=== PATIENT | female | born 1970 | race Caucasian/White ===

== ENCOUNTER 2016-10-02 01:16 | Inpatient (IN) | payer MEDICAID, MEDICARE ==
[~2016-10-02] VITALS: Ht 177.8 cm; Wt 106.9 kg
[2016-10-02] VITALS (18 sets, daily range): BP systolic 99–133; BP diastolic 58–96; PULSE 101–157; RESP 15–23; O2SAT 91–100
[~2016-10-02 01:16] MED LIST: ACYC400T2 PO; ALPR3TAB PO; CITA20TA PO; DULO20CA PO; PHEN37.53 PO; QUET400T PO; TIZA4TAB4 PO; TRAZ-118 PO
[2016-10-02] MEDS ORDERED: Ondansetron 2 mg/mL 2 mL Inj ONE (01:36)
--- NOTE | 2016-10-02 01:38 | ED.REPORT ---
HPI-Abd Pain F 40 and Over Date of Service Oct 02, 2016 ED Provider: Jostin Macias MD A 46 year old female with a history of RSD, anxiety, sciatica, hyperlipidemia, GERD, appendectomy, cholecystectomy and stomach ulcers at age 11, presents to the ED complaining of hematemesis. The pt began experiencing hematemesis two days ago and was seen in the [place] ED where she was treated and discharged. She vomited intermittently yesterday and is still vomiting persistently today. The pt is now experiencing abdominal pain, back pain, and melanotic diarrhea. The pt denies a history of liver disease or recent endoscopy, though she has been scoped in the past. Nursing Notes Stated Complaint: VOMITING BLOOD Chief Complaint: Female Abdominal Pain Nursing Notes Reviewed: Yes Allergies: Coded Allergies: codeine (Verified Adverse Reaction, Intermediate, NAUSEA, 10/02/16) Scheduled Alprazolam ER (Xanax XR) 3 Mg Tab.er.24h 3 MG PO DAILY Acyclovir (Acyclovir) 400 Mg Tablet 400 MG PO HS Citalopram Hydrobromide (Celexa) 20 Mg Tablet 20 MG PO DAILY Duloxetine (Cymbalta) 20 Mg Capsule 60 MG PO HS Phentermine (Phentermine) 37.5 Mg Tablet 37.5 MG PO MORNING Quetiapine Fumarate (Seroquel) 400 Mg Tablet 400 MG PO HS Tizanidine (Tizanidine) 4 Mg Tablet 4 MG PO 0000 Trazodone (Trazodone) 100 Mg Tablet 200 MG PO HS General Time Seen by MD: 01:37 Chief Complaint Other (Hematemesis) Hx Obtained From: Patient Arrived By: Walk-in Sudden in Onset?: No Symptom Duration: Since onset Recent Healthcare: Recent doctor visit Similar Sx Previous: Yes Past Medical History Past Medical History Anxiety Chronic Back Pain Sciatica Chronic Shoulder pain Hyperlipidemia GERD Depresion h/o RSD upper limb Stomach ulcers at age 11 Chronic benzodiazepine use Chronic opioids Past Surgical History Right rotator cuff surgery x3 Breast augmentation Reports: Appendectomy, Cholecystectomy Reports: Tubal ligation Family History The patients father had coronary artery disease Smoking History Former Smoker Social History Alcohol Use: "Social" Drug Use: Denies drug use (other than chronic prescribed meds) Other Social History: Local resident Occupation , Ambulatory Status Independent Review of Systems Respiratory: Denies: Non-productive cough, Shortness of breath Cardiovascular: Denies: Chest pain GI: Reports: Abdominal pain, Diarrhea, Hematemesis, Hematochezia, Nausea, Vomiting Musculoskeletal: Reports: Back pain, Denies: Neck pain Complete sys rev & neg: except as marked. Skin: Denies Rash Physical Exam Vital Signs Vital Signs (First) Date Time Temp Pulse Resp B/P Pulse Ox O2 Delivery O2 Flow Rate FiO2 10/02/16 01:23 157 20 133/96 100 Room Air 10/02/16 03:15 37.1 3 Initial VS: Reviewed General/Constitutional: Awake, Alert diaphoretic actively vomiting bloody material unconstrained diarrhea, grossly melanotic Respiratory / Chest: Atraumatic, Breath sounds NL, Breath sounds = bilat, No respiratory distress Cardiovascular: Heart rate NL, Regular rhythm, Heart sounds NL Abdomen: Atraumatic, Soft diffuse abdominal tenderness Back: Atraumatic, Full range of motion Head / Eyes: Atraumatic, Normocephalic, PERRL, EOMI ENT: Atraumatic, Airway patent, Mucous membranes moist Skin: Atraumatic, Color NL, No rash, Warm, Dry Neurologic: Oriented X3, Speech NL, No motor deficits, No sensory deficits Neck: Atraumatic, Supple, Full range of motion Upper Extremity / MS: Atraumatic, Full range of motion Lower Extremity / Pelvis / MS: Atraumatic, Full range of motion Psychiatric: Affect NL, Mood NL Interpretation & Diagnostics Lab Results Interpretation Result Diagram: 10/02/16 0328 10/02/16 0143 Test 10/02/16 01:43 10/02/16 03:28 Neutrophils (%) (Auto) 83.3% (40-74) Lymphocytes (%) (Auto) 12.6% (14-46) Monocytes (%) (Auto) 3.6% (4-12) Eosinophils (%) (Auto) 0.2% (0-5) Basophils (%) (Auto) 0.1% (0-3) Hold Purple Top Tube Received (Received) Prothrombin Time 10.7sec (8.1-12.5) Prothromb Time International Ratio 1.00ratio Hold Blue Top Tube Received (Received) Sodium Level 141mEq/L (134-144) Potassium Level 3.8mEq/L (3.5-5.2) Chloride Level 100mEq/L (97-108) Carbon Dioxide Level 17mmol/L (18-29) Blood Urea Nitrogen 32mg/dL (6-24) Creatinine 1.14mg/dL (0.57-1.00) Estimat Glomerular Filtration Rate 74mL/min (>59) Glucose Level 264mg/dL (60-99) Calcium Level 9.3mg/dL (8.5-10.1) Magnesium Level 1.3mg/dL (1.6-2.6) Total Bilirubin 0.6mg/dL (0.0-1.2) Aspartate Amino Transf (AST/SGOT) 13U/L (0-50) Alanine Aminotransferase (ALT/SGPT) 12U/L (0-32) Alkaline Phosphatase 60U/L (25-150) Total Protein 7.0g/dL (6.4-8.4) Albumin 4.3g/dL (3.4-5.0) Hold Red Top Tube Received (Received) Hold [place] Top Tube Received (Received) Hold Kat Top Tube Received (Received) White Blood Count 14.7th/mm3 (3.8-10.1) Red Blood Count 3.68mil/mm3 (3.90-5.20) Hemoglobin 11.1g/dL (12.0-15.6) Hematocrit 32.6% (35.0-46.0) Mean Corpuscular Volume 88.6fL (81-100) Mean Corpuscular Hemoglobin 30.2pg (27.0-35.0) Mean Corpuscular Hemoglobin Concent 34.0% (32.0-37.0) Red Cell Distribution Width 13.0% (12.3-15.4) Platelet Count 181bil/L (150-400) ECG Interpretation ECG Interpretation: sinus tachycardia with a rate of 133 nonspecific STT wave changes Time: 02:52 Interpreted by: ED physician X-Ray Chest Interpretation Chest Xray Interpretation: no acute findings Interpretation / Wet Read by: Wet read ED physician Re-Eval/Medical Decision Med Decision/Clinical Course 46-year-old presents with hematemesis, gross melena, and tachycardia. She has not responded much to IV saline, and is now on her third liter with no real diminution of her pulse rate. Hemoglobin is adequate and dropped slightly over the course of her stay in the emergency department from 11.8-11.1. Vomiting is been difficult to control, but has responded finally to ondansetron plus Haldol plus Ativan. Protonix drip and bolus given. Single-dose octreotide without drip given. Nothing by mouth status and anticipate endoscopy during the hospitalization. Source of Hx: Old records Re-Evaluation/Progress : Time of Eval: 01:37 Patient Status: Condition improved Re-Evaluation/Progress Note: Pt informed of the need for admission during the initial interview. The pt understands and agrees with the plan. All questions are addressed at this time. Consultation #1: Referral / Consult Name: Yunior Beebe MD Consulted With: Hospitalist Call Returned at: 03:30 Construction Scheduler: Agrees with eval, Agrees with plan, Accepts admit Note: Spoke with Dr. Beebe, hospitalist, regarding pt's case. Dr. Beebe agrees with the evaluation and agrees to admit the pt. Consultation #2: Referral / Consult Name: Flex Barton MD Call Returned at: 05:34 Construction Scheduler: Agrees with eval, Agrees with plan Note: Consulted with Dr. Barton, GI, regarding pt's case. Dr. Barton agrees with the evaluation and plan for admission. He agrees to consult and see the pt. Counseled Regarding: Diagnosis, Lab results, Need for admission Discharge & Departure Primary Impression: Upper GI bleed Disposition: ADMITTED TO HOSPITAL Discharge Condition All VS Reviewed: Yes Condition: Stable Referrals: Da Rojas DO (PCP) Crit Care Except Billable Proc Time Spent: 30-74 minutes (thirty minutes) Services Performed: Patient management by me, Time spent at bedside, Reviewing test results, Reviewing imaging, Discussing patient care, Documentation in record, Time with fam/surrogate Scribe Attestation Portions of this note were transcribed by Alex Walden. I, Dr. Macias personally performed the history, physical exam and medical decision-making; I reviewed and confirmed the accuracy of the information in the transcribed note. copies to: Da Rojas Christopher W MD Oct 02, 2016 01:37 ALEX WALDEN Oct 02, 2016 01:56
[2016-10-02] MEDS ORDERED: Haloperidol 5 mg/mL Inj ONE (01:49)
[2016-10-02] MEDS ORDERED: 0.9% Sodium Chloride 1,000 ML IV ONE (02:08)
[2016-10-02] MEDS ORDERED: Pantoprazole 4 mg/mL 10 mL Inj IVPUSH ONE (02:10)
[2016-10-02] MEDS ORDERED: Haloperidol 5 mg/mL Inj IVPUSH ONE ×2 (02:10→02:25)
[2016-10-02] MEDS ORDERED: Pantoprazole Inj 80 MG, Pharmacy To Mix 1 EA in 0.9% Sodium Chloride 80 ML IV ONE ×2 (02:10)
[2016-10-02 02:20] LABS: BASOPHILS % (AUTO) 0.1 % (0-3)
[2016-10-02 02:22] LABS: EOSINOPHILS % (AUTO) 0.2 % (0-5); MONOCYTES % (AUTO) 3.6 % (4-12); Mean Corpuscular Hemoglobin 30.3 pg (27.0-35.0); Mean Corpuscular Volume 86.4 fL (81-100); NEUTROPHILS % (AUTO) 83.3 % (40-74); Platelet Count 371 bil/L (150-400)
[2016-10-02] MEDS ORDERED: 0.9% Sodium Chloride 50 ML ONE (02:26)
[2016-10-02 02:31] LABS: Magnesium 1.3 mg/dL (1.6-2.6)
[2016-10-02 03:34] LABS: Mean Corpuscular Hemoglobin 30.2 pg (27.0-35.0); Mean Corpuscular Volume 88.6 fL (81-100)
[2016-10-02] MEDS ORDERED: Alum-Mag Hydrox-Simeth 30 mL Suspension PO PRN (03:40)
[2016-10-02] MEDS ORDERED: Polyethylene Glycol (PEG) 17 Gm Powder PO PRN (03:40)
[2016-10-02] MEDS ORDERED: Senna-Docusate 8.6-50 mg Tablet PO PRN (03:40)
[2016-10-02] MEDS: 0.9% Sodium Chloride 1,000 ML IV SCH (04:09)
[2016-10-02] MEDS: Pantoprazole Inj 80 MG in 0.9% Sodium Chloride-Pha MIX 80 ML IV SCH ×2 (05:25→15:25)
[2016-10-02] MEDS ORDERED: Pantoprazole Inj 80 MG in 0.9% Sodium Chloride 100 ML IV ONE (05:25)
[2016-10-02] MEDS ORDERED: Albuterol 2.5 mg/3 mL Inhalation Solution NEB PRN (07:00)
--- NOTE | 2016-10-02 07:24 | PCM.HPMED ---
Subjective Date of Service Oct 02, 2016 Primary Provider: Admitting Physician: Yunior Beebe MD Primary Care Physician: aD Rojas DO Attending Physician: Yunior Beebe MD Admit Status: From the Emergency Department Chief Complaint: Vomiting blood History of Present Illness: Cynthia Flores is a 46 year old lady with a history of asthma, GERD, HTN , HLD, chronic pain and a complex psychiatric history including a mood disorder , depression, anxiety and PTSD with psychiatric hospitalizations for suicidal ideations as well as benzodiazepine/muscle relaxant abuse who presented to the ED with complaint of vomiting blood for the past 2 days. History obtained from patient and via chart review. She states that her symptoms started two days ago and increasingly worsened until she started vomiting blood. Associated symptoms include fever, chills, malaise, melanotic diarrhea. She was reportedly evaluated in the ED at [facility] at the onset and sent home. She reports a history of reflux and chronic back pain with sciatica for which she recently had been taking meloxicam. However, she states that she stopped taking this about one week ago. She does not remember if she has ever had an endoscopy but a study on 05/30/11 significant for mild chronic gastritis, small hiatal hernia and negative for Christine's esophagus as well as H. pylori. She states that she rarely drinks caffeine, denies alcohol use and states that the only change in her diet recently is that she has not been eating. Prior abdominal surgeries include an appendectomy, cholecystectomy and tubal ligation. In the ED she was afebrile, normotensive and tachycardic with heart into the 150s. Labs significant for anemia with H/H 11.9/33.6, mild leukoctyosis with WBC of 17.5 and elevated BUN/Creatinine (32/1.14). ECG sinus tachycardia with a rate of [address] wave changes; chest Xray was unremarkable. She was given 2L of normal saline, ocreteotide, IV pushes of haldol, lorazepam, as well as zofran and started on a protonix drip. Review of Systems: A comprehensive review of systems was conducted with the patient and found to be negative except as above in the History of Present Illness. Allergies Coded Allergies: codeine (Verified Adverse Reaction, Intermediate, NAUSEA, 10/02/16) Home Medications Alprazolam ER 3 MG PO DAILY Acyclovir 400 MG PO HS Citalopram Hydrobromide 20 MG PO DAILY Duloxetine 60 MG PO HS Phentermine 37.5 MG PO MORNING Quetiapine Fumarate 400 MG PO HS Tizanidine 4 MG PO Trazodone 200 MG PO HS PMH GERD Hypertension Hyperlipidemia Obesity Depression/PTSD Mood disorder, unspecified Chronic Shoulder pain Psychiatric hospitalizations for mood disorder Benzodiazepine/muscle relaxant abuse Complex regional pain syndrome right upper extremity Chronic pain with right sided sciatica Mixed urinary incontinence Chronic headaches Suicidal ideation Surgical History Right rotator cuff surgery x3 Breast augmentation Appendectomy Cholecystectomy Tubal ligation Family History Father- CAD with prior [place] and cardiomyopathy. Mother- Breast cancer and diabetes Paternal grandmother with breast cancer Social History Hx Alcohol Use: No Hx Substance Use: Yes (MJ occasionally) Hx Tobacco Use: Yes (MEDICAL MARIJUANA AND OCC CIGARETTES) Smoking Status: Former Smoker Living Arrangement: with Family Exam Vital Signs Vital Sign - Last Date Time Temp Pulse Resp B/P Pulse Ox O2 Delivery O2 Flow Rate FiO2 10/02/16 03:15 37.1 122 18 99 Nasal Cannula 3 10/02/16 03:13 109/74 Intake and Output 10/01/16 10/01/16 10/02/16 Cumulative From/Thru 15:00 23:00 07:00 10/02/16 01:23 - 10/02/16 02:45 Intake Total 2050 ml 2050 ml Balance 2050 ml 2050 ml Intake IV Total 2050 ml 2050 ml Exam General: Obese female, appears anxious and in mild distress due to abdominal pain. HEENT: Normocephalic, atraumatic. External ears without defect. Pupils equal, round, and reactive to light and accommodation. Anicteric sclerae. Mucosa dry. Neck: Supple with full range of motion. No jugular venous distension, bruits or thyromegaly. Cardiovascular: Regular rhythm, tachycardic rate. No murmurs or rubs appreciated. Pulmonary: Clear to auscultation bilaterally with no crackles, wheezes, or rhonchi. Abdomen: Soft, obese, nondistended, diffusely tender to palpation matilde mid epigastric area. No rebound or guarding. Bowel tones present. Extremities: No clubbing, cyanosis, or edema. Skin: Normal temperature, turgor, and texture; no rash or ulcerations. Neurological: Cranial nerves grossly intact. Normal muscle strength, tone, and bulk. Psychiatric: Anxious mood, somewhat flat affect. Alert and oriented to person, place, and time. Lab and Diagnostics Labs Laboratory Tests Test 10/02/16 01:43 10/02/16 03:28 White Blood Count 17.5th/mm3 (3.8-10.1) 14.7th/mm3 (3.8-10.1) Red Blood Count 3.89mil/mm3 (3.90-5.20) 3.68mil/mm3 (3.90-5.20) Hemoglobin 11.8g/dL (12.0-15.6) 11.1g/dL (12.0-15.6) Hematocrit 33.6% (35.0-46.0) 32.6% (35.0-46.0) Mean Corpuscular Volume 86.4fL (81-100) 88.6fL (81-100) Mean Corpuscular Hemoglobin 30.3pg (27.0-35.0) 30.2pg (27.0-35.0) Mean Corpuscular Hemoglobin Concent 35.1% (32.0-37.0) 34.0% (32.0-37.0) Red Cell Distribution Width 12.9% (12.3-15.4) 13.0% (12.3-15.4) Platelet Count 371bil/L (150-400) 181bil/L (150-400) Neutrophils (%) (Auto) 83.3% (40-74) Lymphocytes (%) (Auto) 12.6% (14-46) Monocytes (%) (Auto) 3.6% (4-12) Eosinophils (%) (Auto) 0.2% (0-5) Basophils (%) (Auto) 0.1% (0-3) Hold Purple Top Tube Received (Received) Prothrombin Time 10.7sec (8.1-12.5) Prothromb Time International Ratio 1.00ratio Hold Blue Top Tube Received (Received) Sodium Level 141mEq/L (134-144) Potassium Level 3.8mEq/L (3.5-5.2) Chloride Level 100mEq/L (97-108) Carbon Dioxide Level 17mmol/L (18-29) Blood Urea Nitrogen 32mg/dL (6-24) Creatinine 1.14mg/dL (0.57-1.00) Estimat Glomerular Filtration Rate 74mL/min (>59) Glucose Level 264mg/dL (60-99) Calcium Level 9.3mg/dL (8.5-10.1) Magnesium Level 1.3mg/dL (1.6-2.6) Total Bilirubin 0.6mg/dL (0.0-1.2) Aspartate Amino Transf (AST/SGOT) 13U/L (0-50) Alanine Aminotransferase (ALT/SGPT) 12U/L (0-32) Alkaline Phosphatase 60U/L (25-150) Total Protein 7.0g/dL (6.4-8.4) Albumin 4.3g/dL (3.4-5.0) Hold Red Top Tube Received (Received) Hold [place] Top Tube Received (Received) Hold Kat Top Tube Received (Received) Result Diagram: 10/02/16 0328 10/02/16 0143 Assessment & Plan 46 year old lady with a history of GERD, HTN, chronic pain and a complex psychiatric history including a persistent mood disorder, depression, anxiety and prior psychiatric hospitalizations for suicidal ideations who presented to the ED with a two day history of hematemesis. Admitted for further evaluation and management of acute upper GI bleed. Acute upper GI bleed, present on admission. Active -Likely secondary to gastric ulcer. Pt with remote hx of gastritis (EGD in 2011 negative for Christine's and H. pylori) and recently discontinued meloxicam. Pt presented with hematemesis and melanotic diarrhea. -Afebrile, normotensive but persistently tachycardic despite IV fluids. -H/H trending down 11.6 on admission. Now 9.1 -PT/INR 10.7/1.0 -Stool guaiac pending -NPO -IV fluids at 100 mL per hour -GI consult in the morning -Protonix drip Anemia secondary to acute blood loss. Present on admission. Active. -H/H trending down 11.6 on admission. Now 9.1 -Treat underlying cause as above -Monitor H/H -Transfusion threshold Hb < 7.0 Acute kidney injury. Present on admission. Active. -Likely prerenal due to hypovolemia secondary to acute GI bleed. -Creatinine on 06/18/15 was 0.75 now 1.14. BUN on 06/18/15 was 9 now 32. -Continue IVFs Acute Dehydration. Present on admission. Active. - secondary to volume depletion from diarrhea/lack of PO intake - Received 2L of NS in ED. - Continue Volume Repletion with NS IV 125ml/hr - Monitor electrolytes Leukocytosis, acute. Present on admission. Active. -Likely stress reaction. -No obvious signs of infection -Monitor CBC Hyperglycemia, likely acute. Present on admission. Active. -Pt without diagnosis of diabetes and serum glucose within normal limits in May of 2015. -Serum glucose 264 on admission. -Repeat CMP Asthma, chronic. Present on admission. Active. -Continue home inhalers. CODE STATUS: FULL CODE FEN: NPO IVF: GI Prophylaxis: Protonix gtt. DVT Prophylaxis: Held in setting of GI bleed. PRN: Acetaminophen-fever/headache/mild/moderate pain Antiemetics, as needed Bowel regimen, as needed. Disposition: Patient admitted under inpatient status with expected length of stay > 2 midnights for severity of present symptoms, complexities of treatment plan and risk for adverse event. Pain Evaluation: Adequate Pain Control VTE Mechanical Devices: Intermittant Pneumatic CD Resuscitation Status: CPR: Attempt Resuscitation Time spent 45 minutes critical care time spend. Patient was admitted to the ICU due to concern about volume loss with tachycardia and clinical decline when in the Emergency department Attending Statement The patient was seen and examined together with Dr. Iglesias on 10/02 and I agree with the history, exam and plan as outlined in the note above. Shea Iglesias DO Oct 02, 2016 03:57 Yunior Beebe MD Oct 02, 2016 19:49
--- NOTE | 2016-10-02 07:30 | NUR ---
CCU Admit Pt arrived from [facility] to CCU # 2020 approx at 2114. Pt A&O x3. Dopamine was infusing at 4 mcg. VSS. Dopamine off since 2300. No bradycardia or pauses noted. Admission assessment and screening completed. [facility] updated. Spouse at the bedside throughout the NOC providing support and comfort. No overt complications noted. Addendum: 10/02/16 at 0731 by CATHERINE GODDARD RN Discard above note. Wrong pt
--- NOTE | 2016-10-02 07:31 | NUR ---
Admit Pt arrived from ER to CCU # 2018 approx at 0455. Pt appears anxious. She admits to chronic anxiety issues. VSS. HR tachycardic more so when she is anxious. Admission assessment and screening completed. at the bedside assessing pt. Pt status changed to PCC/Tele. Pt moved to room 2001. Pt medicated for pain and anxiety. No overt complications noted.
[2016-10-02] MEDS ORDERED: Pantoprazole 4 mg/mL 10 mL Inj IVPUSH SCH (08:30)
--- NOTE | 2016-10-02 08:37 | CONS ---
[address] [address] CONSULTATION REPORT PATIENT: GIFTY FIGUEROA : 1970 MR#: [id number] ADMIT: 10/02/2016 JOB ID: [id number] DATE OF SERVICE: 10/02/2016 GASTROENTEROLOGY CONSULTATION: REASON FOR CONSULTATION: Hematemesis. HISTORY OF PRESENT ILLNESS: A 46-year-old female, history of asthma, GERD, hypertension, hyperlipidemia, chronic pain, history of psychiatric disorders, PTSD, anxiety, mood disorder, depression presents for a consultation for hematemesis x2 days. The patient states she was vomiting blood during this point in time. The patient states that she had an upper endoscopy that was performed on May 30, 2011, which showed gastritis, small hiatal hernia. Negative for Christine esophagus. The patient denies NSAID use or alcohol during this time. The patient never had a colonoscopy and family history is negative for colon cancer, inflammatory bowel disease or celiac disease. The patient was admitted with a hemoglobin of 11.8, hematocrit 33 with a BUN of 32 and a creatinine of 1.1. PT 10.7, INR 1.0. The patient states that she denies rectal bleeding, change in bowel habits or unintentional weight loss. PAST MEDICAL HISTORY: As stated above, which also includes: 1. Chronic shoulder pain. 2. Benzodiazepine muscle relaxant abuse. 3. Chronic migraine. 4. Suicide ideation. PAST SURGERIES: 1. Right rotator cuff surgery x3. 2. Breasts augmentation. 3. Appendectomy. 4. Cholecystectomy. 5. Tubal ligation. ALLERGIES: CODEINE. HOME MEDICATIONS: 1. Alprazolam. 2. Acyclovir. 3. Citalopram. 4. Fluoxetine. 5. Quetiapine. 6. Tizanidine. 7. Trazodone. SOCIAL HISTORY: She does marijuana occasionally. No IV drug use. No smoking. No alcohol. FAMILY HISTORY: Negative for colon cancer, IBD or celiac disease. REVIEW OF SYSTEMS: The patient denies headache, blurred vision. Positive for nausea and vomiting. No chest pain, shortness of breath. Positive for abdominal pain. No skin rash or joint pain. PHYSICAL EXAMINATION: Vital signs upon presentation: Her temperature is 37.1, pulse 115, blood pressure 108/68, respiratory rate 20, satting 95% room air. General: She has had no scars. Eyes: Anicteric. Throat: Supple. Lungs: Clear to auscultation bilaterally. Cardiovascular: Regular rate and rhythm. Abdomen: Soft, nondistended. Positive epigastric pain upon palpation. Normoactive bowel sounds. Extremities: No cyanosis, clubbing or edema. LABORATORIES: Labs show a PT 10.7, INR 1.0. White blood cell count 14.7, hemoglobin 9.1, hematocrit 26, platelet count of 181. Sodium 141, potassium 3.8, chloride 100, bicarbonate 17, BUN 32, creatinine 1.1, glucose 262. Calcium 9.3, magnesium 1.3. Total bilirubin 0.6, AST 13, ALT 12, alk phos 60. ASSESSMENT AND PLAN: This is a 46-year-old female, history of GERD, hypertension, hyperlipidemia, chronic pain, PTSD, anxiety, depression, mood disorder on benzodiazepines and muscle relaxants who presents here for hematemesis x2 days. Differential diagnosis includes esophagitis, gastritis, Suyapa-Good tear, peptic ulcer disease, AVM. RECOMMENDATIONS: 1. Continue Protonix drip. 2. N.p.o. except for medications. 3. EGD with anesthesia scheduled for today around noon. 4. Please order abdominal ultrasound along with checking an amylase and lipase for pancreatitis due to epigastric pain. Will continue to follow. [facility]
[2016-10-02] MEDS ORDERED: fentaNYL-PF 50 mCg/mL 2 mL Inj ONE (09:47)
[2016-10-02] MEDS ORDERED: Propofol 10,000 mCg/mL 20 mL Inj ONE (09:47)
[2016-10-02] MEDS ORDERED: Ketamine 10 mg/mL 20 mL Inj ONE (09:47)
--- NOTE | 2016-10-02 09:54 | NUR ---
Social Work: Initial Assessment Data: Pt is a 46 y/o female admitted for upper GI bleed. Pt's PCP is Dr Rojas, pt's insurance is Medicare with [facility] supp. EMR reviewed. Readmit score not listed. Pt has a hx of suicidal ideation, QA TEST LEAD will follow up regarding this pending MD order if this is a current issue. QA TEST LEAD met with pt at bedside, role explained. Pt states she lives in [place] with her s/o and 2 sons in a single story home where she uses no DME. Pt drives, has no hx of HH or SNF, no LTC or VA benefits, has no LTC or VA benefits, and is not a caregiver. No d/c planning needs identified at this time. QA TEST LEAD will continue to follow if needs arise. Assessment: Pt who is independent at baseline, currently capable of self care. Hx of suicidal ideation, QA TEST LEAD will follow pending MD order if this is a current issue. Plan: Pt will d/c home via POV when medically stable. QA TEST LEAD will continue to follow if needs arise. WILBERT Rebolledo Addendum: 10/02/16 at 0958 by TANA SEVILLA Amended: Links added.
[2016-10-02] MEDS ORDERED: QUET200T58 PO (10:57)
[2016-10-02] MEDS ORDERED: OXYC-465 PO (10:57)
[2016-10-02] MEDS ORDERED: ALBU8.5H2 INH (10:57)
[2016-10-02] MEDS ORDERED: DULO30CA50 PO (10:57)
--- NOTE | 2016-10-02 11:20 | NUR ---
pt for endoscopy pt left for upper endoscopy via stretcher.
[2016-10-02] MEDS ORDERED: Lactated Ringer's 1,000 ML IV ONE ×2 (12:07)
--- NOTE | 2016-10-02 12:56 | ENDO ---
[address] [address] ENDOSCOPY PROCEDURE PATIENT: GIFTY FIGUEROA : 1970 MR#: [id number] ADMIT: 10/02/2016 JOB ID: [id number] DATE OF SERVICE: 10/02/2016 PROCEDURE: Esophagogastroduodenoscopy. PREOPERATIVE DIAGNOSIS(ES): Gastrointestinal bleed. POSTOPERATIVE DIAGNOSIS: Completely normal upper endoscopy without overt signs of gastrointestinal bleeding. ANESTHESIA: Monitored anesthesia care. COMPLICATIONS: None. BLOOD LOSS: Minimal. DESCRIPTION OF PROCEDURE: After risks and benefits explained to the patient, informed consent was obtained. After anesthesia administered, upper endoscope was inserted into the mouth, intubated into the esophagus, stomach, second portion of duodenum. Mucosa carefully examined. After procedure was done, the scope was withdrawn and the procedure terminated. FINDINGS: Upon inspection of esophagus, the esophagus was normal without masses, ulcers, lesions. Z-line located 40 cm from incisors. Upon entry into the stomach, the stomach was also normal without masses, ulcers, or lesions. Retroflexion was normal. No evidence of Suyapa-Good tear or evidence that even gastritis was even seen. No overt signs of bleeding was seen. Duodenal bulb, first and second portion normal. IMPRESSION: Completing normal upper endoscopy. RECOMMENDATIONS: 1. Discontinue Protonix drip. 2. Recommendations per the patient's GI consultation team. 3. Okay to start clear liquid diet, advance as tolerated. MTDD
--- NOTE | 2016-10-02 15:02 | DRSVH ---
PROCEDURE: X-RAY CHEST ONE VIEW, PORTABLE ([id number]) INDICATIONS: ugi bleed TECHNIQUE: One view of the chest was acquired. COMPARISON: [facility], CR, XR CHEST 2VW, 09/10/2015, 16:06. [facility], CR , XR CHEST 1VW (PORTABLE), 01/04/2015, 12:18. FINDINGS: Surgical changes and devices: Surgical anchors involving the right humeral head. Lungs and pleura: No pleural effusions or pneumothorax. Lungs are clear. Mediastinum: Mediastinal contours appear normal. Heart size is normal. Bones and chest wall: No suspicious bony lesions. Overlying soft tissues appear unremarkable. IMPRESSION: No acute cardiopulmonary disease. Dictated by: Martinez TREVINO Interpreted: Farzana Dutta MD on 10/02/2016 at 8:39 Approved by: Farzana Dutta M.D. on 10/02/2016 at 15:00
[2016-10-02] MEDS ORDERED: Magnesium Sulf 2 Gm/50mL Water 2 GM in IV Premix 1 EACH IV ONE (15:05)
--- NOTE | 2016-10-02 16:23 | PCM.HPANE ---
Patient Data Date of Service: Oct 02, 2016 Surgeon Admitting Provider:Yunior Beebe MD Attending Provider:Jyoti Zheng DO Primary Care Physician:Da Rojas DO Other Provider: Reason for Visit Upper Gi Bleed Ht/WT & BMI Height (Feet): 5 Height (Inches): 10.00 Weight (Kilograms): 103.700 Body Mass Index 32.00 Allergies Coded Allergies: codeine (Verified Adverse Reaction, Intermediate, NAUSEA, 10/02/16) Past Anesthesia History Anesthesia History: Positive for:: Difficult Intubation, Denies:: Abnormal Airway, Anesthesia Reactions, Fam Anesthesia Reaction, Fam Malignant Hypertherm, Malignant Hyperthermia Diabetes History Hx Diabetes?: No MRSA MRSA: No Medications Reported Medications Duloxetine 30 Mg Capsule.dr30 Mg PO DAILY #60 10/02/16 oxyCODONE-Acetaminophen 7.5-325 mg 1 Each Tablet1 Tab PO Q3-4Hrs PRN For Pain # 28 10/02/16 Quetiapine Fumarate 200 Mg [id number] Mg PO HS #30 10/02/16 Albuterol HFA (Proair HFA)8.5 Gm Hfa.aer.ad2 Puffs INH Q4-6H PRN For Shortness of Breath #26 10/02/16 Alprazolam ER (Xanax XR)3 Mg Tab.er.24h3 Mg PO DAILY For Anxiety Ref 0 01/04/15 Trazodone 100 Mg Iwvwxs678 Mg PO HS #30 TABLET Ref 0 07/26/14 Acyclovir 400 Mg Cmplkn891 Mg PO HS 30 Days Ref 0 07/03/14 Quetiapine Fumarate (Seroquel)400 Mg Vrvtgr795 Mg PO HS #30 TABLET Ref 0 01/31/14 Discontinued Reported Medications Phentermine 37.5 Mg Fbnxwg05.5 Mg PO MORNING 06/18/15 Tizanidine 4 Mg Tablet4 Mg PO 0000 06/18/15 Duloxetine (Cymbalta)20 Mg Glibbrb10 Mg PO HS Ref 0 01/04/15 Citalopram Hydrobromide (Celexa)20 Mg Lydorc37 Mg PO DAILY 30 Days Ref 0 01/31/14 History History of ENT Problems?: No HEENT History: Positive for:: Difficult Intubation Denies:: Abnormal Airway Hearing Problem Denture Type: Full- Upper Teeth Condition: Missing Teeth Hx of Heart Problems?: No Cardiovascular History: Denies:: Cardiac Surgery Chest Pain Congestive Heart Failure Edema Heart Murmur Hypertension Irregular Heartbeat Pacemaker Thrombophlebitis Hx of Respiratory Problem?: Yes Respiratory History: Positive for:: Asthma Cough Denies:: Tuberculosis Hx Neurologic Problems?: Yes Neurological History: Positive for:: Dizziness Headaches Denies:: Alzheimer's Disease CVA Dementia Parkinson's Disease Seizures Hx of GI Problems?: No Hx of Problems?: No Female Hx: Denies:: Currently Endometriosis Pelvic Inflammatory Problems with Breasts? Hx Musculoskeletal Problems?: No Musculoskeletal History: Denies:: Joint Replacement Musculoskeletal Trauma Hx of Psycho/Social Problems?: Yes Psycho Social History: Positive for:: Anxiety Hx Depression Suicide Attempt (took pills) Denies:: Bipolar Disorder Hx Surgeries?: Yes (gwen pimentel) Hx Any Other Health Problems?: Yes Other History: Positive for:: Hospitalization History Blood Transfusions: Positive for:: Accept Blood Products? Denies:: Blood Transfusions Hx Diabetes: No Hx Alcohol Use: NoHx Substance Use: Yes (MJ occasionally) Smoking Status: Former Smoker Have You Smoked inLast 12 mo: Yes (minimal amount) Stop/Bang Treated for Sleep Apnea?: No Do You Have a CPAP Machine?: No S-Snoring: Do You Snore Loudly: No T-Tired: feel tired, fatigued: No O-Obsered: Observed not breath: No P-Blood Pressure: treated: No B- Body Mass Index > 35 kg/m2: No A- Age over 50: No N- Neck Large Circumference: No G- Gender Male: No FRIDA Total Score: 0 FRIDA Risk Assessment: Low Risk, <3 Yes Risk Assessment Category Category 1A: Patient has history of documented sleep apnea, and HAS NOT received any narcotic, sedative or anesthesia administration during this stay. Category 1B: Patient has history of documented sleep apnea, and HAS received any narcotic , sedative or anesthesia administration during this stay Category 2: Patient has SUSPECTED Obstructive Sleep Apnea, and HAS received any narcotic , sedative or anesthesia administration during this stay. Category 3: Patient has SUSPECTED Obstructive Sleep Apnea and HAS NOT received narcotic, sedative or anesthesia administration during this stay. Category 4: Outpatient in Procedural Areas with known sleep apnea or who screen positive for High Risk via the STOP/BANG questionnaire. Exam Exam Vital Signs Vital Signs Date Time Temp Pulse Resp B/P Pulse Ox O2 Delivery O2 Flow Rate FiO2 8/10/17 16:09 36.9 102 15 102/70 99 Room Air 10/02/16 12:44 36.8 101 20 112/75 100 Room Air 10/02/16 12:25 103 16 99/62 100 Room Air 10/02/16 12:13 104 16 102/74 97 Room Air 10/02/16 11:35 36.2 105 16 100/58 96 Room Air 10/02/16 10:00 110 General Appearance: Alert, Oriented X3, Cooperative, No Acute Distress HEENT/AIRWAY: MP 2 Lungs: Clear to Auscultation, Normal Air Movement Heart: Exam Unremarkable, Regular Rate/Rhythm, No Murmurs/Rubs/Gallops Meds/Labs/Diagnostics Admission Meds Current Medications Ondansetron HCl (Zofran Inj) 8 mg STK-MED ONCE .ROUTE Last administered on 10/02 01:36; Start 10/02/16 at 01:36; Stop 10/02/16 at 01:38; Status DC Haloperidol Lactate (Haldol Inj) 5 mg STK-MED ONCE .ROUTE Last administered on 10/02/16 02:01; Start 10/02/16 at 01:49; Stop 10/02/16 at 01:51; Status DC Diphenhydramine HCl (Benadryl Inj) 50 mg STK-MED ONCE .ROUTE Last administered on 10/02/16 02:01; Start 10/02/16 at 01:49; Stop 10/02/16 at 01:51; Status DC Pantoprazole 80 mg 80 mg STAT ONCE IVPUSH Last administered on 10/02/16 02:43 ; Start 10/02/16 at 02:10; Stop 10/02/16 at 02:12; Status DC Pantoprazole/ Miscellaneous/ Sodium Chloride (Protonix Inj/ Pharmacy To Mix/ Normal Saline) 100 ml @ 10 mls/hr ONCE ONCE IV Last administered on 03:13; Start 10/02/16 at 02:10; Stop 10/02/16 at 12:09; Status DC Octreotide Acetate 50 mcg 50 mcg ONCE ONCE IVPUSH Last administered on 02:43; Start 10/02/16 at 02:10; Stop 10/02/16 at 02:12; Status DC Sodium Chloride (Normal Saline) 1,000 ml @ 0 mls/hr Q0M ONCE IV Last administered on 10/02/16 02:43; Start 10/02/16 at 02:08; Stop 10/02/16 at 02:12 ; Status DC Lorazepam (Ativan Inj) 1 mg ONCE ONCE IVPUSH Last administered on 10/02/16 02 :43; Start 10/02/16 at 02:10; Stop 10/02/16 at 02:12; Status DC Haloperidol Lactate 3 mg 3 mg ONCE ONCE IVPUSH Last administered on 10/02/16 02:43; Start 10/02/16 at 02:25; Stop 10/02/16 at 02:26; Status DC Sodium Chloride 50 ml @ ud STK-MED ONCE .ROUTE Last administered on 10/02/16 02:44; Start 10/02/16 at 02:26; Stop 10/02/16 at 02:28; Status DC Sodium Chloride (Normal Saline) 1,000 ml @ 0 mls/hr Q0M IV Last administered on 10/02/16 04:09; Start 10/02/16 at 03:35 Lorazepam 1 mg 1 mg ONCE ONCE IVPUSH Last administered on 10/02/16 12:46; Start 10/02/16 at 11:15; Stop 10/02/16 at 11:18; Status DC Lactated Ringer's 1,000 ml @ ud STK-MED ONCE IV Last administered on 12:07; Start 10/02/16 at 12:07; Stop 10/02/16 at 12:08; Status Cancel Lactated Ringer's 1,000 ml @ ud STK-MED ONCE IV Last administered on 12:10; Start 10/02/16 at 12:07; Stop 10/02/16 at 12:10; Status DC Magnesium Sulfate/ Premix (Magnesium Sulf 2 Gm/50mL Water/ IV Premix) 50 ml @ 50 mls/hr ONCE ONCE IV Last administered on 10/02/16 15:56; Start 10/02/16 at 15:05; Stop 10/02/16 at 16:04; Status DC Labs Test 10/02/16 01:43 10/02/16 03:28 10/02/16 05:45 Neutrophils (%) (Auto) 83.3% (40-74) Lymphocytes (%) (Auto) 12.6% (14-46) Monocytes (%) (Auto) 3.6% (4-12) Eosinophils (%) (Auto) 0.2% (0-5) Basophils (%) (Auto) 0.1% (0-3) Hold Purple Top Tube Received (Received) Prothrombin Time 10.7sec (8.1-12.5) Prothromb Time International Ratio 1.00ratio Hold Blue Top Tube Received (Received) Sodium Level 141mEq/L (134-144) Potassium Level 3.8mEq/L (3.5-5.2) Chloride Level 100mEq/L (97-108) Carbon Dioxide Level 17mmol/L (18-29) Blood Urea Nitrogen 32mg/dL (6-24) Creatinine 1.14mg/dL (0.57-1.00) Estimat Glomerular Filtration Rate 74mL/min (>59) Glucose Level 264mg/dL (60-99) Calcium Level 9.3mg/dL (8.5-10.1) Magnesium Level 1.3mg/dL (1.6-2.6) Total Bilirubin 0.6mg/dL (0.0-1.2) Aspartate Amino Transf (AST/SGOT) 13U/L (0-50) Alanine Aminotransferase (ALT/SGPT) 12U/L (0-32) Alkaline Phosphatase 60U/L (25-150) Total Protein 7.0g/dL (6.4-8.4) Albumin 4.3g/dL (3.4-5.0) Procalcitonin 0.06ng/mL (0.00-0.08) Hold Red Top Tube Received (Received) Hold Delancey Top Tube Received (Received) Hold Kat Top Tube Received (Received) White Blood Count 14.7th/mm3 (3.8-10.1) Red Blood Count 3.68mil/mm3 (3.90-5.20) Mean Corpuscular Volume 88.6fL (81-100) Mean Corpuscular Hemoglobin 30.2pg (27.0-35.0) Mean Corpuscular Hemoglobin Concent 34.0% (32.0-37.0) Red Cell Distribution Width 13.0% (12.3-15.4) Platelet Count 181bil/L (150-400) Hemoglobin 9.1g/dL (12.0-15.6) Hematocrit 26.4% (35.0-46.0) Plan Impression Patient chart reviewed, patient interviewed and anesthestic plan with risks, benefits, and alternatives discussed, and informed consent obtained. NPO per Anesth. Guidelines: Yes ASA Physical Status: ASA3 Severe Disease Anesthetic Plan: MAC Bene/Risks/Altern/Consents: Yes HP Complete Prior to Induction: Yes Tristin Hay DO Oct 02, 2016 16:23
--- NOTE | 2016-10-02 16:24 | PCM.ANEP1 ---
Post Anesthesia PACU Phase 1 Assessment Date of Service: Oct 02, 2016 Vital Signs Vital Signs Date Time Temp Pulse Resp B/P Pulse Ox O2 Delivery O2 Flow Rate FiO2 10/02/16 16:09 36.9 102 15 102/70 99 Room Air 10/02/16 12:44 36.8 101 20 112/75 100 Room Air 10/02/16 12:25 103 16 99/62 100 Room Air 10/02/16 12:13 104 16 102/74 97 Room Air 10/02/16 11:35 36.2 105 16 100/58 96 Room Air 10/02/16 10:00 110 Anesthetic Administered: MAC Level of Alertness: Awake, talking Pain: Yes Pain Scale Score: 6 Nausea or Vomiting: No CV Function & Hydration Stable: Yes Airway Device: Oxygen Delivery: Room Air Lungs: Clear to Auscultation, Normal Air Movement PACU Phase 2 Assessment Complications: No Patient Instructions Provided: N/A Tristin Hay DO Oct 02, 2016 16:24
--- NOTE | 2016-10-02 16:58 | PCM.PROC ---
Procedure Note Date of Service: Oct 02, 2016 Procedure: Procedure: Osteopathic Manipulative Treatment Subjective: Patient is currently here for a GI bleed however the patient states that she is currently having low back pain. The patient states that she has been having low back pain on the right for the last 3 weeks and has been to multiple specialties and physicians who have not been able to figure out her pain. The patient states that movement makes it worse and nothing seems to improve the pain. Risks and benefits of OMT were explained to the patient and verbal consent obtained. Osteopathic Structural Exam: Thoracics:T8-T10 NRlSr Lumbars:L3-L4 NRrSl Abdomen: Diaphragm restriction on the right Pelvis: Anterior right innominate Sacrum: Right SIJ restriction Upper extremities: Right latissimus dorsi hypertonicity greater than left Lower extremities: Still has tender point on the right greater than left Patient responded well to treatment. Patient stated that her pain was significantly improved status post treatment. Patient was able to move without pain and did not react with deep palpation. Osteopathic treatment modalities used: Myofascial release, Muscle [employer], BLT, and soft tissue technique Provider and Satellite Tv Installer: Jyoti Dominique DO Oct 02, 2016 16:58
--- NOTE | 2016-10-02 17:39 | NUR ---
Stool pt had to black loose stools today. Guaiac sent to lab, awaiting results.
--- NOTE | 2016-10-02 18:05 | NUR ---
Info given to family Information given to mother and mother in law with pt's permission.
--- NOTE | 2016-10-02 18:08 | PCM.PNMED ---
Subjective Date of Service Oct 02, 2016 Subjective Subjective: Patient laying in bed on exam states that she feels fearful. I attempted to discuss with her the reasoning for her fears however she was unable to elucidate any reasoning behind this. Patient continued to yawn throughout the course of our encounter. Osteopathic manipulative treatment was performed in the presence of Dr. Zheng. upper endoscopy completed today. Events Overnight: No acute events overnight. ROS: Complains of anxiety, abdominal pain, back pain. Denies fever/chills, nausea/vomiting, headache, weakness, chest pain, shortness of breath, increased swelling in hands or feet. Exam Vital Signs Vital Sign - Last Date Time Temp Pulse Resp B/P Pulse Ox O2 Delivery O2 Flow Rate FiO2 10/02/16 16:24 Room Air 10/02/16 16:09 36.9 102 15 102/70 99 10/02/16 05:00 2.00 Intake and Output 10/01/16 10/01/16 10/02/16 Cumulative From/Thru 15:00 23:00 07:00 10/02/16 01:23 - 10/02/16 05:30 Intake Total 3050 ml 3050 ml Balance 3050 ml 3050 ml Intake IV Total 3050 ml 3050 ml Exam General: Mild distress, well-developed, well-nourished HEENT: Normocephalic, atraumatic. External ears without defect. Pupils equal, round, and reactive to light and accommodation. Anicteric sclerae, moist conjunctivae. Cardiovascular: Regular rate and rhythm with no murmurs, rubs, or gallops appreciated Pulmonary: Clear to auscultation bilaterally with no crackles, wheezes, or rhonchi. Normal respiratory effort with no use of accessory muscles. Abdomen: Bowel tones present. Soft, nontender, nondistended. Extremities: No clubbing, cyanosis, edema Skin: Normal temperature, turgor, and texture; no rash, ulcers, or subcutaneous nodules appreciated. Neurological: Cranial nerves grossly intact. Reflexes, coordination, and sensory function within normal limits. Normal muscle strength, tone, and bulk. Psychiatric: Normal mood and affect. Alert and oriented to person, place, and time IVs and Medications IV Fluids 2100 mL normal saline delivered with IV medications. Medications Reviewed: Medications were reviewed in detail Medications High-risk medications include: Lorazepam Alprazolam Lab and Diagnostics Result Diagram: 10/02/16 0545 10/02/16 0143 X-Rays, CTs and MRIs X-RAY CHEST ONE VIEW, PORTABLE IMPRESSION: No acute cardiopulmonary disease. Dictated by: Martinez TREVINO Interpreted: Farzana Dutta MD on 10/02/2016 at 8:39 Approved by: Farzana Dutta M.D. on 10/02/2016 at 15:00 Additional Diagnostics ENDOSCOPY PROCEDURE IMPRESSION: Completing normal upper endoscopy. RECOMMENDATIONS: 1. Discontinue Protonix drip. 2. Recommendations per the patient's GI consultation team. 3. Okay to start clear liquid diet, advance as tolerated. Flex Barton MD 10/02/16 1211 <Electronically signed by Flex Barton MD> 10/02/16 133 Assessment & Plan 46 year old lady with a history of GERD, HTN, chronic pain and a complex psychiatric history including a persistent mood disorder, depression, anxiety and prior psychiatric hospitalizations for suicidal ideations who presented to the ED with a two day history of hematemesis. Admitted for further evaluation and management of acute upper GI bleed. Benzodiazepine abuse syndrome, present on admission, active -Patient has a history of benzodiazepine abuse. At home she is prescribed 3 mg alprazolam XR 24-hour. -Here in the hospital she was receiving Ativan every 4 hours. This was discontinued after her EGD and she was started on her home dose of alprazolam. -She will most assuredly ask for increased doses of benzodiazepines, please do not give. Acute upper GI bleed, present on admission. Active -Likely secondary to gastric ulcer. Pt with remote hx of gastritis (EGD in 2011 negative for Christine's and H. pylori) and recently discontinued meloxicam. Pt presented with complaints of hematemesis and melanotic diarrhea. -Afebrile, normotensive but persistently tachycardic despite IV fluids, possibly due to benzodiazepine withdrawal. -H/H trending down 11.6 on admission. Last checked 9.1, likely dilutional, continue to trend -PT/INR 10.7/1.0 -Stool guaiac pending -EGD completed today shows no findings. Report as above -Protonix drip DC Anemia secondary to acute blood loss. Present on admission. Active. -H/H trending down 11.6 on admission. Last checked 9.1 likely delusional -Monitor H/H -Transfusion threshold Hb < 7.0 Acute kidney injury. Present on admission. Active. -Likely prerenal due to hypovolemia secondary to acute GI bleed. -Creatinine on 06/18/15 was 0.75 now 1.14. BUN on 06/18/15 was 9 now 32. -Continue IVFs as tolerated Acute Dehydration. Present on admission. Active. - secondary to volume depletion from diarrhea/lack of PO intake - Received 2L of NS in ED. - Continue to monitor electrolytes Leukocytosis, acute. Present on admission. Active. -Likely stress reaction. -No obvious signs of infection -Monitor CBC Hypomagnesemia, present on admission, active -Patient was given 2 mg IV magnesium today -Recheck magnesium in the morning Hyperglycemia, likely acute. Present on admission. Active. -Pt without diagnosis of diabetes and serum glucose within normal limits in May of 2015. -Serum glucose 264 on admission. -Continue to monitor Asthma, chronic. Present on admission. Active. -Continue home inhalers. CODE STATUS: FULL CODE IVF: GI Prophylaxis: DVT Prophylaxis: Held in setting of GI bleed. PRN: Acetaminophen-fever/headache/mild/moderate pain Antiemetics, as needed Bowel regimen, as needed. Disposition: If patient's blood counts remain stable possible discharge home the next 24 hours. VTE Mechanical Devices: Intermittant Pneumatic CD Resuscitation Status: CPR: Attempt Resuscitation Attending Statement The patient was seen and examined together with Dr. Mcguire on 10/02/16 and I have added additional information to the note above. Cesar Mcguire DO Oct 02, 2016 18:08 Jyoti Zheng DO Oct 06, 2016 12:50
[2016-10-02 19:35] LABS: Mean Corpuscular Hemoglobin 30.2 pg (27.0-35.0); Mean Corpuscular Volume 90.9 fL (81-100)
--- NOTE | 2016-10-02 20:05 | NUR ---
H&H: P: H&H dropped to 22.9 and 7.6; pt noted to be having black loose stool. I: Dr. Guzman notified of H&H results and the appearance of pt's stool. No orders to transfuse until pt's hemaglobin is <7. Will cont. to monitor pt for hypotension and frequent stooling over the night and draw a H&H as necessary. E: Pt stable at this time. Will cont. to monitor.
[2016-10-02] MEDS: Acyclovir 400 mg Tablet PO SCH (22:50)
[2016-10-03] VITALS (15 sets, daily range): BP systolic 95–148; BP diastolic 52–85; PULSE 64–116; RESP 14–22; O2SAT 94–97
[2016-10-03 02:15] LABS: BASOPHILS % (AUTO) 0.2 % (0-3); EOSINOPHILS % (AUTO) 4.1 % (0-5); MONOCYTES % (AUTO) 4.8 % (4-12); Mean Corpuscular Hemoglobin 30.2 pg (27.0-35.0); Mean Corpuscular Volume 91.1 fL (81-100); NEUTROPHILS % (AUTO) 51.1 % (40-74); Platelet Count 126 bil/L (150-400)
--- NOTE | 2016-10-03 02:25 | NUR ---
HGB of 7.1 P: Pt's H&H continues to drop as noted per am labs. I: Dr. Guzman notified at 0223 of H&H of 7.1 and 21.4. does not want to transfuse at this time. No further orders. E: Will cont. to closely monitor pt.
[2016-10-03] MEDS ORDERED: 0.9% Sodium Chloride 250 ML IV ONE (06:30)
[2016-10-03] MEDS ORDERED: diphenhydrAMINE 25 mg Capsule PO ONE (06:30)
--- NOTE | 2016-10-03 06:48 | NUR ---
Orders to Transfuse: Receiving orders to transfuse [address] units of PRBCs per Dr[address] Mcguire. paged to notify him that blood consent needs to be signed. Benadryl administered as ordered.
--- NOTE | 2016-10-03 07:44 | PCM.PNSURG ---
Subjective Date of Service: Oct 03, 2016 Date of Service: Oct 03, 2016 Visit Information: Subjective: epigastric pain this am. hb 7.1 this am. black stool. s/p egd yesterday Postop General: No Complaints Objective Vital Sign- Last 8 Hours Date Time Temp Pulse Resp B/P Pulse Ox O2 Delivery O2 Flow Rate FiO2 10/03/16 07:38 116 10/03/16 05:52 106 106/67 10/03/16 04:47 104 10/03/16 04:06 102 10/03/16 03:31 36.8 104 16 95/59 96 Room Air 10/02/16 23:55 104 Intake and Output- Last 8 Hour 10/03/16 Cumulative From/Thru 07:00 10/02/16 01:23 - 10/03/16 06:23 Intake Total 900 ml 5002 ml Output Total 1175 ml 2025 ml Balance -275 ml 2977 ml Intake Oral 900 ml 1580 ml IV Total 3422 ml Output Urine Total 1175 ml 2025 ml # Voids 2 2 # Bowel Movements 1 3 General: Oriented X3 Neck: Supple Lungs: Clear to Auscultation Heart: Exam Unremarkable Abdomen: Benign, Soft, Appropriately tender, Non-distended, Normoactive bowel tones Extremities: Distal Pulses Palpable Result Diagram: 10/03/16 0200 10/03/16 0200 Assessment & Plan Impression This is a 46-year-old female, history of GERD, hypertension, hyperlipidemia, chronic pain, PTSD, anxiety, depression, mood disorder on benzodiazepines and muscle relaxants who presents here for hematemesis x2 days. Differential diagnosis includes esophagitis, gastritis, Suyapa-Good tear, peptic ulcer disease, AVM. s/p egd 10/02/2016- nl RECOMMENDATIONS: 1. CT abdomen pelvis with contrast- r/o retroperitoneal bleed 2. Colonoscopy tomorrow MAC- 9am 3. Golyteyl prep tonight 4. If pt becomes hemodynamically unstable with overt signs bleed, consider RBC tag scan 5. serial h/h Will continue to follow. Problems: Resuscitation Status: CPR: Attempt Resuscitation Flex Barton MD Oct 03, 2016 07:43
--- NOTE | 2016-10-03 15:10 | DRSVH ---
PROCEDURE: CT ABDOMEN AND PELVIS WITH CONTRAST ([id number]) INDICATIONS: Abdominal pain, blood loss TECHNIQUE: After the administration of oral and intravenous contrast, 5 mm thick sections acquired from the diap hragms to the symphysis. 5 mm thick coronal and sagittal reformats were performed. For radiation do se reduction, the following was used: automated exposure control, adjustment of mA and/or kV accordi ng to patient size. COMPARISON: [facility], CT, CT ABD PELVIS W CON, 06/18/2015, 17:11. FINDINGS: Image quality: Excellent. ABDOMEN: Lung bases: Left basilar scar is unchanged. No pleural effusion. Heart is normal size. Solid organs: The liver is diffusely hypodense suggesting fatty infiltration. The spleen demonstrate s normal size and enhancement. Gallbladder is surgically absent. Biliary system is non-dilated. Lane creas enhances normally. No adrenal nodules. Kidneys are normal in size and enhancement, without hy dronephrosis. Peritoneum and bowel: Stomach, small bowel, and colon loops are normal in caliber and wall thickness . The appendix is thin walled. There are a few scattered colonic diverticula. No mucosal thickening o r pericolonic fat stranding to suggest acute diverticulitis. No free fluid or air. Nodes and vessels: No retroperitoneal or mesenteric adenopathy. Aorta and inferior vena cava are no rmal in caliber. Miscellaneous: No ventral hernias. PELVIS: Genitourinary: Bladder wall thickness is normal. There is likely a posterior uterine fibroid which is incompletely characterized. Miscellaneous: No inguinal hernias or adenopathy. Bones: No suspicious bony lesions. No vertebral body compression fractures. IMPRESSION: 1. No acute intra-abdominal findings. Normal appendix. 2. Mild diverticulosis. No acute diverticulitis. 3. Hepatic steatosis. 4. Probable uterine fibroid which is incompletely characterized. If further characterization is warra nted, a pelvic ultrasound is recommended. Dictated by: Farzana Dutta M.D. on 10/03/2016 at 15:02 Approved by: Farzana Dutta M.D. on 10/03/2016 at 15:08
[2016-10-03] MEDS ORDERED: PEG/Electrolytes 4,000 mL Solution PO ONE (16:00)
--- NOTE | 2016-10-03 18:42 | NUR ---
Blood Transfusion Consent for blood transfusion obtained this AM. Pt received 1 unit. At the end of blood transfusion pt stating IV site hurting really bad. New IV started on the left forearm. Pt receiving second unit at this time, no s/s of adverse reaction. Will keep monitoring.
--- NOTE | 2016-10-03 20:06 | PCM.PNMED ---
Subjective Date of Service Oct 03, 2016 Subjective Subjective: Patient's blood count was low this morning consent was obtained to transfuse 2 units of blood which was done at this time. Patient stated at this time that she did not feel weak and was not sure that this was necessary, however was willing to comply and signed the consent form after risks and benefits were discussed patient had no further questions. Events Overnight: No acute events overnight. ROS: Complains of abdominal pain, anxiety, nausea, diarrhea. Denies fever/chills , nausea/vomiting, headache, weakness, chest pain, shortness of breath, increased swelling in hands or feet. Exam Vital Signs Vital Sign - Last Date Time Temp Pulse Resp B/P Pulse Ox O2 Delivery O2 Flow Rate FiO2 10/03/16 18:08 36.7 105 18 126/80 10/03/16 16:15 94 Room Air 10/02/16 05:00 2.00 Intake and Output 10/02/16 10/02/16 10/03/16 Cumulative From/Thru 15:00 23:00 07:00 10/02/16 01:23 - 10/03/16 06:23 Intake Total 372 ml 680 ml 900 ml 5002 ml Output Total 850 ml 1175 ml 2025 ml Balance 372 ml -170 ml -275 ml 2977 ml Intake Oral 680 ml 900 ml 1580 ml IV Total 372 ml 3422 ml Output Urine Total 850 ml 1175 ml 2025 ml # Voids 2 2 # Bowel Movements 2 1 3 Exam General: Mild distress, fatigued, well-developed, well-nourished HEENT: Normocephalic, atraumatic. External ears without defect. Pupils equal, round, and reactive to light and accommodation. Anicteric sclerae, moist conjunctivae. Pale palpebrae Cardiovascular: Regular rate and rhythm with no murmurs, rubs, or gallops appreciated Pulmonary: Clear to auscultation bilaterally with no crackles, wheezes, or rhonchi. Normal respiratory effort with no use of accessory muscles. Abdomen: Bowel tones present. Soft, tender to palpation, nondistended. Extremities: No clubbing, cyanosis, edema Skin: Pale complexion, normal temperature, turgor, and texture; no rash, ulcers , or subcutaneous nodules appreciated. Neurological: Cranial nerves grossly intact. Reflexes, coordination, and sensory function within normal limits. Normal muscle strength, tone, and bulk. Psychiatric: Patient appears fearful, and anxious. Alert and oriented to person , place, and time IVs and Medications IV Fluids 250 mL normal saline delivered with IV medications. Medications Reviewed: Medications were reviewed in detail Medications High-risk medications include: Oxycodone Alprazolam Lab and Diagnostics Result Diagram: 10/03/16 0743 10/03/16 0200 X-Rays, CTs and MRIs X-RAY CHEST ONE VIEW, PORTABLE IMPRESSION: No acute cardiopulmonary disease. Dictated by: Martinez Kerns RRRoe Interpreted: Farzana Dutta MD on 10/02/2016 at 8:39 Approved by: Farzana Dutta M.D. on 10/02/2016 at 15:00 CT ABDOMEN AND PELVIS WITH CONTRAST IMPRESSION: 1. No acute intra-abdominal findings. Normal appendix. 2. Mild diverticulosis. No acute diverticulitis. 3. Hepatic steatosis. 4. Probable uterine fibroid which is incompletely characterized. If further characterization is warranted, a pelvic ultrasound is recommended. Dictated by: Farzana Dutta M.D. on 10/03/2016 at 15:02 Approved by: Farzana Dutta M.D. on 10/03/2016 at 15:08 Additional Diagnostics ENDOSCOPY PROCEDURE IMPRESSION: Completing normal upper endoscopy. RECOMMENDATIONS: 1. Discontinue Protonix drip. 2. Recommendations per the patient's GI consultation team. 3. Okay to start clear liquid diet, advance as tolerated. Flex Barton MD 10/02/16 1211 <Electronically signed by Flex Barton MD> 10/02/16 4036 Assessment & Plan 46 year old lady with a history of GERD, HTN, chronic pain and a complex psychiatric history including a persistent mood disorder, depression, anxiety and prior psychiatric hospitalizations for suicidal ideations who presented to the ED with a two day history of hematemesis. Admitted for further evaluation and management of acute upper GI bleed. Benzodiazepine abuse syndrome, present on admission, active -Patient has a history of benzodiazepine abuse. At home she is prescribed 3 mg alprazolam XR 24-hour. -Here in the hospital she was receiving Ativan every 4 hours. This was discontinued after her EGD and she was started on her home dose of alprazolam. -She will most assuredly ask for increased doses of benzodiazepines, please do not give. Acute GI bleed, present on admission. Active -Upper scope on 10/02 negative for any findings consistent with gastric disease, report as above -Afebrile, normotensive but persistently tachycardic despite IV fluids, possibly due to benzodiazepine withdrawal. -H/H 7.1 10/03 patient was transfused with 2 units PRBCs -Nurse's note that the patient has had black stools since admission -CT scan completed today shows no intra-abdominal disease, see report above. -Patient scheduled for colonoscopy on 10/04, bowel prep completed today, only clear liquids by mouth Anemia secondary to acute blood loss. Present on admission. Active. -H/H 7.1 10/03 patient was transfused with 2 units PRBCs -Monitor H/H -Transfusion threshold Hb < 7.0 Acute kidney injury. Present on admission. Active. -Likely prerenal due to hypovolemia secondary to acute GI bleed. -BUN and creatinine returned to normal levels continue to monitor -Continue IVFs as tolerated Acute Dehydration. Present on admission. Active. - secondary to volume depletion from diarrhea/lack of PO intake - Received 2L of NS in ED. Giving fluid as needed to support blood pressures - Continue to monitor electrolytes Leukocytosis, acute. Present on admission. Active. -Likely stress reaction. -No obvious signs of infection -Monitor CBC Hypomagnesemia, present on admission, active -Patient was given 2 mg magnesium today -Recheck magnesium Hyperglycemia, likely acute. Present on admission. Active. -Pt without diagnosis of diabetes and serum glucose within normal limits in May of 2015. -Serum glucose 264 on admission. Currently within appropriate limits -Hemoglobin A1c 5.6 -Continue to monitor Asthma, chronic. Present on admission. Active. -Continue home inhalers. CODE STATUS: FULL CODE GI Prophylaxis: DVT Prophylaxis: Held in setting of GI bleed. PRN: Acetaminophen-fever/headache/mild/moderate pain Antiemetics, as needed Bowel regimen, as needed. Disposition: Patient to receive colonoscopy on 10/04 consider discharge home once blood counts become stable. VTE Mechanical Devices: Intermittant Pneumatic CD Resuscitation Status: CPR: Attempt Resuscitation Attending Statement The patient was seen and examined together with Dr. Mcguire on 10/03/16 and I agree with the history, exam and plan as outlined in the note above. Cesar Mcguire DO Oct 03, 2016 20:06 Jyoti Zheng DO Oct 06, 2016 15:00
[2016-10-03] MEDS: Acyclovir 400 mg Tablet PO SCH (21:46)
[2016-10-04] VITALS (12 sets, daily range): BP systolic 103–134; BP diastolic 65–87; PULSE 84–107; RESP 8–18; O2SAT 94–100
[2016-10-04 02:46] LABS: Mean Corpuscular Hemoglobin 29.2 pg (27.0-35.0); Mean Corpuscular Volume 88.6 fL (81-100)
[2016-10-04 04:19] LABS: Magnesium 1.2 mg/dL (1.6-2.6)
--- NOTE | 2016-10-04 04:48 | NUR ---
Blood/Lab/Tele Finished admin of 2nd unit PRBC. no adverse affects noted, then Saline locked, Bowel Prep for Endoscopy in AM finished Golytely . ending with thin watery stool. A&O x3 using call light appropriately. Bilateral upper extremity IV . Room Air, Telemetry S-Tach .
[2016-10-04] MEDS ORDERED: Magnesium Sulf 4 Gm/100 mL H2O 4 GM in IV Premix 1 EACH IV ONE (07:45)
[2016-10-04] MEDS ORDERED: Lactated Ringer's 1,000 ML IV SCH (08:53)
[2016-10-04] MEDS ORDERED: Lactated Ringer's 1,000 ML IV ONE (08:53)
--- NOTE | 2016-10-04 08:53 | PCM.HPANE ---
Patient Data Surgeon Admitting Provider:Yunior Beebe MD Attending Provider:Jyoti Zheng DO Primary Care Physician:Da Rojas DO Other Provider: Reason for Visit Upper Gi Bleed Ht/WT & BMI Height (Feet): 5 Height (Inches): 10.00 Weight (Kilograms): 106.900 Body Mass Index 33.00 Allergies Coded Allergies: codeine (Verified Adverse Reaction, Intermediate, NAUSEA, 10/02/16) Past Anesthesia History Anesthesia History: Positive for:: Difficult Intubation, Denies:: Abnormal Airway, Anesthesia Reactions, Fam Anesthesia Reaction, Fam Malignant Hypertherm, Malignant Hyperthermia Diabetes History Hx Diabetes?: No MRSA MRSA: No Medications Hypertension Medication: No Home Meds Incl Beta Jerri: No Reported Medications Duloxetine 30 Mg Capsule.dr30 Mg PO DAILY #60 10/02/16 oxyCODONE-Acetaminophen 7.5-325 mg 1 Each Tablet1 Tab PO Q3-4Hrs PRN For Pain # 28 10/02/16 Quetiapine Fumarate 200 Mg [id number] Mg PO HS #30 10/02/16 Albuterol HFA (Proair HFA)8.5 Gm Hfa.aer.ad2 Puffs INH Q4-6H PRN For Shortness of Breath #26 10/02/16 Alprazolam ER (Xanax XR)3 Mg Tab.er.24h3 Mg PO DAILY For Anxiety Ref 0 01/04/15 Trazodone 100 Mg Exkewf030 Mg PO HS #30 TABLET Ref 0 07/26/14 Acyclovir 400 Mg Ummiig697 Mg PO HS 30 Days Ref 0 07/03/14 Quetiapine Fumarate (Seroquel)400 Mg Jyzbtz549 Mg PO HS #30 TABLET Ref 0 01/31/14 Discontinued Reported Medications Phentermine 37.5 Mg Dmdumq17.5 Mg PO MORNING 06/18/15 Tizanidine 4 Mg Tablet4 Mg PO 0000 06/18/15 Duloxetine (Cymbalta)20 Mg Htwxiso84 Mg PO HS Ref 0 01/04/15 Citalopram Hydrobromide (Celexa)20 Mg Duurzc08 Mg PO DAILY 30 Days Ref 0 01/31/14 History History of ENT Problems?: No HEENT History: Positive for:: Difficult Intubation Denies:: Abnormal Airway Hearing Problem Denture Type: Full- Upper Teeth Condition: Tooth Decay Missing Teeth Hx of Heart Problems?: No Cardiovascular History: Denies:: Cardiac Surgery Chest Pain Congestive Heart Failure Edema Heart Murmur Hypertension Irregular Heartbeat Pacemaker Thrombophlebitis Hx of Respiratory Problem?: Yes Respiratory History: Positive for:: Asthma Cough Denies:: Tuberculosis Hx Neurologic Problems?: Yes Neurological History: Positive for:: Dizziness Headaches Denies:: Alzheimer's Disease CVA Dementia Parkinson's Disease Seizures Hx of GI Problems?: No Hx of Problems?: No Female Hx: Denies:: Currently Endometriosis Pelvic Inflammatory Problems with Breasts? Hx Musculoskeletal Problems?: No Musculoskeletal History: Denies:: Joint Replacement Musculoskeletal Trauma Hx of Psycho/Social Problems?: Yes Psycho Social History: Positive for:: Anxiety Hx Depression Suicide Attempt (took pills) Denies:: Bipolar Disorder Hx Surgeries?: Yes (gwen pimentel) Hx Any Other Health Problems?: Yes Other History: Positive for:: Hospitalization History Blood Transfusions: Positive for:: Accept Blood Products? Denies:: Blood Transfusions Hx Diabetes: No Hx Alcohol Use: NoHx Substance Use: Yes (MJ occasionally) Smoking Status: Former Smoker Have You Smoked inLast 12 mo: Yes (minimal amount) Stop/Bang Treated for Sleep Apnea?: No Do You Have a CPAP Machine?: No S-Snoring: Do You Snore Loudly: No T-Tired: feel tired, fatigued: No O-Obsered: Observed not breath: No P-Blood Pressure: treated: No B- Body Mass Index > 35 kg/m2: No A- Age over 50: No N- Neck Large Circumference: No G- Gender Male: No FRIDA Total Score: 0 FRIDA Risk Assessment: Low Risk, <3 Yes Risk Assessment Category Category 1A: Patient has history of documented sleep apnea, and HAS NOT received any narcotic, sedative or anesthesia administration during this stay. Category 1B: Patient has history of documented sleep apnea, and HAS received any narcotic , sedative or anesthesia administration during this stay Category 2: Patient has SUSPECTED Obstructive Sleep Apnea, and HAS received any narcotic , sedative or anesthesia administration during this stay. Category 3: Patient has SUSPECTED Obstructive Sleep Apnea and HAS NOT received narcotic, sedative or anesthesia administration during this stay. Category 4: Outpatient in Procedural Areas with known sleep apnea or who screen positive for High Risk via the STOP/BANG questionnaire. Low Risk, <3 Yes Exam Exam Vital Signs Vital Signs Date Time Temp Pulse Resp B/P Pulse Ox O2 Delivery O2 Flow Rate FiO2 10/04/16 08:09 36.8 95 17 114/76 94 Room Air 10/04/16 05:52 107 10/04/16 03:11 36.6 92 16 103/67 95 Room Air General Appearance: Alert, Oriented X3, Cooperative, No Acute Distress HEENT/AIRWAY: MP 2 Lungs: Clear to Auscultation Heart: Exam Unremarkable Meds/Labs/Diagnostics Admission Meds Current Medications Polyethylene Glycol/ Electrolytes 4000 ml 4,000 ml ONCE ONCE PO Last administered on 10/03/16 16:52; Start 10/03/16 at 16:00; Stop 10/03/16 at 16:01 ; Status DC Magnesium Sulfate/ Premix (Magnesium Sulf 4 Gm/100 mL H2O/ IV Premix) 100 ml @ 25 mls/hr ONCE ONCE IV Last administered on 10/04/16 08:17; Start 10/04/16 at 07:45; Stop 10/04/16 at 11:44 Labs Test 10/02/16 01:43 10/02/16 05:45 10/03/16 02:00 10/04/16 02:20 Hold Purple Top Tube Received (Received) Prothrombin Time 10.7sec (8.1-12.5) Prothromb Time International Ratio 1.00ratio Hold Blue Top Tube Received (Received) Procalcitonin 0.06ng/mL (0.00-0.08) Hold Red Top Tube Received (Received) Hold [place] Top Tube Received (Received) Hold Kat Top Tube Received (Received) Hemoglobin A1c 5.6% (4.8-5.6) Neutrophils (%) (Auto) 51.1% (40-74) Lymphocytes (%) (Auto) 39.8% (14-46) Monocytes (%) (Auto) 4.8% (4-12) Eosinophils (%) (Auto) 4.1% (0-5) Basophils (%) (Auto) 0.2% (0-3) White Blood Count 4.2th/mm3 (3.8-10.1) Red Blood Count 3.08mil/mm3 (3.90-5.20) Hemoglobin 9.0g/dL (12.0-15.6) Hematocrit 27.3% (35.0-46.0) Mean Corpuscular Volume 88.6fL (81-100) Mean Corpuscular Hemoglobin 29.2pg (27.0-35.0) Mean Corpuscular Hemoglobin Concent 33.0% (32.0-37.0) Red Cell Distribution Width 14.2% (12.3-15.4) Platelet Count 135bil/L (150-400) Sodium Level 142mEq/L (134-144) Potassium Level 4.0mEq/L (3.5-5.2) Chloride Level 107mEq/L (97-108) Carbon Dioxide Level 24mmol/L (18-29) Blood Urea Nitrogen 3mg/dL (6-24) Creatinine 0.63mg/dL (0.57-1.00) Estimat Glomerular Filtration Rate 146mL/min (>59) Glucose Level 92mg/dL (60-99) Calcium Level 7.7mg/dL (8.5-10.1) Magnesium Level 1.2mg/dL (1.6-2.6) Total Bilirubin 0.7mg/dL (0.0-1.2) Aspartate Amino Transf (AST/SGOT) 14U/L (0-50) Alanine Aminotransferase (ALT/SGPT) 10U/L (0-32) Alkaline Phosphatase 45U/L (25-150) Total Protein 4.6g/dL (6.4-8.4) Albumin 3.1g/dL (3.4-5.0) Plan Impression Patient chart reviewed, patient interviewed and anesthestic plan with risks, benefits, and alternatives discussed, and informed consent obtained. NPO per Anesth. Guidelines: Yes ASA Physical Status: ASA2 Mod Systemic Disease Anesthetic Plan: MAC Bene/Risks/Altern/Consents: Yes HP Complete Prior to Induction: Yes Rito Daily MD Oct 04, 2016 08:53
[2016-10-04] MEDS ORDERED: 0.9% Sodium Chloride 250 ML IV ONE (11:10)
[2016-10-04 11:50] LABS: Unsaturated Iron Binding 70.5 ug/dL
--- NOTE | 2016-10-04 14:40 | ENDO ---
[address] [address] ENDOSCOPY PROCEDURE PATIENT: GIFTY FIGUEROA : 1970 MR#: [id number] ADMIT: 10/02/2016 JOB ID: [id number] DATE OF SERVICE: 10/04/2016 OPERATION: Colonoscopy. PREOPERATIVE DIAGNOSIS(ES): Melena. POSTOPERATIVE DIAGNOSIS(ES): Normal colonoscopy and normal terminal ileum without evidence of blood. ANESTHESIA: Monitored anesthesia care. COMPLICATIONS: None. BLOOD LOSS: Minimal. DESCRIPTION OF PROCEDURE: After the risks and benefits were explained to the patient, informed consent was obtained. After anesthesia was administered, the colonoscope was inserted per rectum to the terminal ileum and the mucosa carefully examined. Prep of the patient was fair. After the procedure was done, the scope was withdrawn and the procedure terminated. FINDINGS: Upon inspection of the anus, no masses, hemorrhoids, ulcers, or fissures that were seen. Throughout the entire examination there were no polyps, masses, or lesions, and no blood was seen. Intubation at the terminal ileum was normal, without evidence of bleeding. Retroflexion was normal. IMPRESSION: Normal colonoscopy. RECOMMENDATIONS: 1. Per inpatient GI consultation team. 2. Okay to start clear liquid diet. 3. Okay to d/c home today will sign off MTDD
[2016-10-04] MEDS ORDERED: PROM12.510 PO (16:18)
[2016-10-04] MEDS ORDERED: ONDA4TAB12 PO (16:18)
[2016-10-04] MEDS ORDERED: PANT20T PO (16:33)
--- NOTE | 2016-10-04 16:40 | PCM.DIMED ---
Cesar Mcguire DO 10/04/16 1640: Discharge Instructions Date of Service Oct 04, 2016 Dates of Hospitalization Oct 02, 2016 at 03:50 Discharge Diagnosis Discharge Diagnosis Normocytic Anemia Acute kidney injury Acute Dehydration Leukocytosis Hypomagnesemia Hyperglycemia Asthma Medication Instructions Additional med instructions Please continue to take your home meds as previously prescribed with the exception of: Ondansetron 4 mg and promethazine 12.5 mg for nausea as needed Protonix 20 mg twice per day for acid reflux Test Results Test Results A variety of tests were conducted during her stay here in the hospital. A chest x-ray and an abdominal CT scan showed no acute findings. An upper endoscopy and colonoscopy also showed no findings. Diet Discharge Diet: No restrictions Activity Discharge Activity: No restrictions Call your provider Call your provider for: Fever or Chills, Shortness of breath, Bleeding, Chest pain, Vomitting, Excessive diarrhea, Weakness (unilateral) Patient Instructions Patient Instructions Please continue to take medications as prescribed above for nausea and to control acid reflux. Continue activity as tolerated. If you begin vomiting, apart from taking her anti-nausea medication please attempt to stay hydrated with fluids as much as possible. Follow-up plan Please follow-up with your primary care doctor as soon as possible. Also follow -up with Dr. Barton the forensic technician, for further workup if needed. Follow-up Provider: Silvana Rees PA-C Follow-up with PCP in: 1 week Provider: Mick Gregory MD Follow-up in: 3 weeks Jyoti Zheng DO 10/04/16 1931: Discharge Instructions Attending's Statement The patient was seen and examined together with Dr. Mcguire on 10/04/16 and I agree with the history, exam and plan as outlined in the note above. Cesar Mcguire DO Oct 04, 2016 16:40 Jyoti Zheng DO Oct 04, 2016 19:31
--- NOTE | 2016-10-04 17:00 | PCM.DC.MED ---
Discharge Summary Date of Service Oct 04, 2016 Dates of Hospitalization Date of Hospital Admission Oct 02, 2016 at 03:50 Date of Discharge: Oct 04, 2016 Providers: Admitting Physician: Yunior Beebe MD Primary Care Physician: Da Rojas DO Attending Physician: Jyoti Zheng DO Diagnosis at Time of Discharge Diagnosis at Time of Discharge Benzodiazepine abuse syndrome, present on admission, active Acute GI bleed, present on admission. Active Anemia secondary to acute blood loss. Present on admission. Improved Acute kidney injury. Present on admission. resolved Acute Dehydration. Present on admission. resolved Leukocytosis, acute. Present on admission. resolved Hypomagnesemia, present on admission, improved Hyperglycemia, likely acute. Present on admission. resolved Asthma, chronic. Present on admission. stable. Consultations Gastroenterology: Dr. Barton Procedures XRay, CTs & MRIs X-RAY CHEST ONE VIEW, PORTABLE IMPRESSION: No acute cardiopulmonary disease. Dictated by: Martinez Kerns RR Interpreted: Farzana Dutta MD on 10/02/2016 at 8:39 Approved by: Farzana Dutta M.D. on 10/02/2016 at 15:00 CT ABDOMEN AND PELVIS WITH CONTRAST IMPRESSION: 1. No acute intra-abdominal findings. Normal appendix. 2. Mild diverticulosis. No acute diverticulitis. 3. Hepatic steatosis. 4. Probable uterine fibroid which is incompletely characterized. If further characterization is warranted, a pelvic ultrasound is recommended. Dictated by: Farzana Dutta M.D. on 10/03/2016 at 15:02 Approved by: Farzana Dutta M.D. on 10/03/2016 at 15:08 Other Diagnostics ENDOSCOPY PROCEDURE IMPRESSION: Completing normal upper endoscopy. RECOMMENDATIONS: 1. Discontinue Protonix drip. 2. Recommendations per the patient's GI consultation team. 3. Okay to start clear liquid diet, advance as tolerated. Flex Barton MD 10/02/16 1211 <Electronically signed by Flex Barton MD> 10/02/16 1338 ENDOSCOPY PROCEDURE IMPRESSION: Normal colonoscopy. RECOMMENDATIONS: 1. Per inpatient GI consultation team. 2. Okay to start clear liquid diet. 3. Okay to d/c home today Flex Barton MD 10/04/16 0911 <Electronically signed by Flex Barton MD> 10/04/16 1444 Brief History Cynthia Flores is a 46 year old lady with a history of asthma, GERD, HTN , HLD, chronic pain and a complex psychiatric history including a mood disorder , depression, anxiety and PTSD with psychiatric hospitalizations for suicidal ideations as well as benzodiazepine/muscle relaxant abuse who presented to the ED with complaint of vomiting blood for the past 2 days. She states that her symptoms started two days ago and increasingly worsened until she started vomiting blood. Associated symptoms include fever, chills, malaise, melanotic diarrhea. She was reportedly evaluated in the ED at [facility] at the onset and sent home. GI was consulted from the ED and patient was started on a protonix drip. Patient was admitted for GI bleed. Endoscopy was performed the next day and was negative for any ulcers or any other source of bleeding. The patient's H&H was stable. Later in the day the patient had melana in her stool and her follow up H&H the next day was decreased from 11.8 to 7.1. The patient received 2 units of blood and a CT of the abdomen and pelvis were done and showed mild diverticulosis, hepatic steatosis and unterine fibroid. There were no acute intra- abdominal findings. A colonoscopy was performed and was also negative for any bleeding causes. The patient's H&H improved and was 10.4/31.4 upon discharge. Iron studies were done showing anemia of chronic disease and should be worked up further as an out patient see below for full labs. Patient also complained of fatigue during this visit and Magnesisum was repleated and 2.1 upon discharge. Patient's TSH adn free T4 were normal. Patient is being discharged home in stable condition and should follow up with her PCP for further anemia and fatigue work up. Hospital Course 46 year old lady with a history of GERD, HTN, chronic pain and a complex psychiatric history including a persistent mood disorder, depression, anxiety and prior psychiatric hospitalizations for suicidal ideations who presented to the ED with a two day history of hematemesis. Admitted for further evaluation and management of acute upper GI bleed. Benzodiazepine abuse syndrome, present on admission, active -Patient has a history of benzodiazepine abuse. At home she is prescribed 3 mg alprazolam XR 24-hour. -Here in the hospital she was receiving Ativan every 4 hours. This was discontinued after her EGD and she was started on her home dose of alprazolam. -She will most assuredly ask for increased doses of benzodiazepines, please do not give. Acute GI bleed, present on admission. Active -Upper endoscope on 10/02 negative for any findings consistent with gastric disease, report as above -Afebrile, normotensive but persistently tachycardic despite IV fluids, possibly due to benzodiazepine withdrawal. -H/H 7.1 10/03 patient was transfused with 2 units PRBCs -Nurse's note that the patient has had black stools since admission -CT scan completed today shows no intra-abdominal disease, see report above. -Patient scheduled for colonoscopy on 10/04, bowel prep completed today, only clear liquids by mouth Anemia secondary to acute blood loss. Present on admission. Active. -H/H 7.1 10/03 patient was transfused with 2 units PRBCs -Monitor H/H -Transfusion threshold Hb < 7.0 Acute kidney injury. Present on admission. Active. -Likely prerenal due to hypovolemia secondary to acute GI bleed. -BUN and creatinine returned to normal levels continue to monitor -Continue IVFs as tolerated Acute Dehydration. Present on admission. Active. - secondary to volume depletion from diarrhea/lack of PO intake - Received 2L of NS in ED. Giving fluid as needed to support blood pressures - Continue to monitor electrolytes Leukocytosis, acute. Present on admission. Active. -Likely stress reaction. -No obvious signs of infection -Monitor CBC Hypomagnesemia, present on admission, active -Patient was given 2 mg magnesium today -Recheck magnesium Hyperglycemia, likely acute. Present on admission. Active. -Pt without diagnosis of diabetes and serum glucose within normal limits in May of 2015. -Serum glucose 264 on admission. Currently within appropriate limits -Hemoglobin A1c 5.6 -Continue to monitor Asthma, chronic. Present on admission. Active. -Continue home inhalers. CODE STATUS: FULL CODE GI Prophylaxis: DVT Prophylaxis: Held in setting of GI bleed. PRN: Acetaminophen-fever/headache/mild/moderate pain Antiemetics, as needed Bowel regimen, as needed. Exam Vital Signs (Last) Date Time Temp Pulse Resp B/P Pulse Ox O2 Delivery O2 Flow Rate FiO2 10/04/16 12:32 36.9 93 16 134/82 Room Air 10/04/16 09:25 94 10/04/16 09:20 4 Exam General: Mild distress, well-developed, well-nourished HEENT: Normocephalic, atraumatic. External ears without defect. Pupils equal, round, and reactive to light and accommodation. Anicteric sclerae, moist conjunctivae. Cardiovascular: Regular rate and rhythm with no murmurs, rubs, or gallops appreciated Pulmonary: Clear to auscultation bilaterally with no crackles, wheezes, or rhonchi. Normal respiratory effort with no use of accessory muscles. Abdomen: Bowel tones present. Soft, nontender, nondistended. Extremities: No clubbing, cyanosis, edema Skin: Normal temperature, turgor, and texture; no rash, ulcers, or subcutaneous nodules appreciated. Neurological: Cranial nerves grossly intact. Reflexes, coordination, and sensory function within normal limits. Normal muscle strength, tone, and bulk. Psychiatric: Normal mood and affect. Alert and oriented to person, place, and time Test 10/02/16 01:43 10/02/16 05:45 10/03/16 02:00 10/04/16 02:20 Hold Purple Top Tube Received (Received) Prothrombin Time 10.7sec (8.1-12.5) Prothromb Time International Ratio 1.00ratio Hold Blue Top Tube Received (Received) Procalcitonin 0.06ng/mL (0.00-0.08) Hold Red Top Tube Received (Received) Hold [place] Top Tube Received (Received) Hold Kat Top Tube Received (Received) Hemoglobin A1c 5.6% (4.8-5.6) Neutrophils (%) (Auto) 51.1% (40-74) Lymphocytes (%) (Auto) 39.8% (14-46) Monocytes (%) (Auto) 4.8% (4-12) Eosinophils (%) (Auto) 4.1% (0-5) Basophils (%) (Auto) 0.2% (0-3) White Blood Count 4.2th/mm3 (3.8-10.1) Red Blood Count 3.08mil/mm3 (3.90-5.20) Mean Corpuscular Volume 88.6fL (81-100) Mean Corpuscular Hemoglobin 29.2pg (27.0-35.0) Mean Corpuscular Hemoglobin Concent 33.0% (32.0-37.0) Red Cell Distribution Width 14.2% (12.3-15.4) Platelet Count 135bil/L (150-400) Reticulocyte Count,Calculated 2.4% (0.6-2.6) Sodium Level 142mEq/L (134-144) Potassium Level 4.0mEq/L (3.5-5.2) Chloride Level 107mEq/L (97-108) Carbon Dioxide Level 24mmol/L (18-29) Blood Urea Nitrogen 3mg/dL (6-24) Creatinine 0.63mg/dL (0.57-1.00) Estimat Glomerular Filtration Rate 146mL/min (>59) Glucose Level 92mg/dL (60-99) Calcium Level 7.7mg/dL (8.5-10.1) Iron Level 171ug/dL (35-150) Total Iron Binding Capacity 242ug/dL (250-450) Percent Iron Saturation 71%sat (15-50) Unsaturated Iron Binding 70.5ug/dL Ferritin 42ng/mL (13-150) Total Bilirubin 0.7mg/dL (0.0-1.2) Aspartate Amino Transf (AST/SGOT) 14U/L (0-50) Alanine Aminotransferase (ALT/SGPT) 10U/L (0-32) Alkaline Phosphatase 45U/L (25-150) Total Protein 4.6g/dL (6.4-8.4) Albumin 3.1g/dL (3.4-5.0) Thyroid Stimulating Hormone (TSH) 2.060uIU/mL (0.450-4.500) Free Thyroxine 0.83ng/dL (0.82-1.77) Test 10/04/16 11:46 10/04/16 14:51 Hemoglobin 10.4g/dL (12.0-15.6) Hematocrit 31.4% (35.0-46.0) Magnesium Level 2.1mg/dL (1.6-2.6) Discharge Medications Discharge Medications Alprazolam ER (Xanax XR) 3 Mg Tab.er.24h 3 MG PO DAILY (Reported) Acyclovir (Acyclovir) 400 Mg Tablet 400 MG PO HS (Reported) Duloxetine (Duloxetine) 30 Mg Capsule.dr 30 MG PO DAILY (Reported) Pantoprazole DR (Protonix) 20 Mg Tablet 20 MG PO BID Prescribed by: JUAN VALENZUELA DO Quetiapine Fumarate (Seroquel) 400 Mg Tablet 400 MG PO HS (Reported) Quetiapine Fumarate (Quetiapine Fumarate) 200 Mg Tablet 200 MG PO HS (Reported) Trazodone (Trazodone) 100 Mg Tablet 200 MG PO HS (Reported) As needed Albuterol HFA (Proair HFA) 8.5 Gm Hfa.aer.ad 2 PUFFS INH Q4-6H PRN PRN For Shortness of Breath (Reported) Ondansetron ODT (Ondansetron ODT) 4 Mg Tab.rapdis 4 MG PO Q8H PRN PRN For Nausea /Vomiting Prescribed by: JUAN VALENZUELA DO Promethazine (Promethazine) 12.5 Mg Tablet 12.5 MG PO Q6H PRN PRN For Anxiety Prescribed by: JUAN VALENZUELA DO oxyCODONE-Acetaminophen 7.5-325 mg (oxyCODONE-Acetaminophen 7.5-325 mg) 1 Each Tablet 1 TAB PO Q3-4Hrs PRN PRN For Pain (Reported) Additional med instructions Patient instructed to take ondansetron 4 mg, promethazine 12.5 mg for nausea as needed Take Protonix 20 mg twice a day All other medications as previously prescribed Followup Plan Disposition: Home Follow-up plan Please follow-up with your primary care doctor as soon as possible. Also follow -up with Dr. Barton the photography sales associate, for further workup if needed. Discharge Diet: No restrictions Discharge Activity: No restrictions Patient Instructions Please continue to take medications as prescribed above for nausea and to control acid reflux. Continue activity as tolerated. If you begin vomiting, apart from taking her anti-nausea medication please attempt to stay hydrated with fluids as much as possible. Follow-up Provider: Silvana Rees PA-C Follow-up with PCP in: 1 week Provider: Mick Gregory MD Follow-up in: 3 weeks Time spent Greater than 35 minutes spent on documentation and coordination of discharge. Attending Statement The patient was seen and examined together with Dr. Valenzuela on 10/04/16 and I have added additional information to the note above. copies to: Silvana Rees PA-C, Adam J DO Oct 04, 2016 16:28 Jyoti Zheng DO Oct 04, 2016 19:52
--- NOTE | 2016-10-04 17:12 | NUR ---
Social Work: Discharge Data: Pt is on day 2 of hospitalization. EMR reviewed. D/C orders are in. Pt discussed in multidisciplinary rounds. No d/c planning needs identified. BARIATRIC PHYSICIAN will continue to follow if needs arise. Assessment: Pt who is independent at baseline. Plan: Pt will d/c home via POV today. No d/c planning needs identified. BARIATRIC PHYSICIAN will continue to follow if needs arise. WILBERT Rebolledo
--- NOTE | 2016-10-04 17:39 | NUR ---
Endoscopy, Discharge Instructions Given 08 - Report given to Endoscopy nurse. About 0845 - She left for Endoscopy to get a colonoscopy 0930 - Discussed her care with Dr. Zheng and the rest of the multidisciplinary care team during morning rounds. Asked if she could be off telemetry for a shower and Dr. Zheng said that would be fine. Told them she was coming back from the colonoscopy. Dr. Zheng asked for an update once this nurse got report. 0940 - She returned form Endoscopy to [facility] 2001 and was settled back into her room. Per report her vitals remained stable, her diet was clear liquids advance as tolerated, and nothing was found on the colonoscopy. She was set up to take a shower shortly after. 1015 - Gave an update to Dr. Zheng. 1141 - Paged Dr. Mcguire as the patient and her mother were concerned about her upcoming discharge today since nothing was found on the tests. 1155 - Called the laboratory and had her magnesium and other lab draws postponed until about 1400 when it would be two hours post her magnesium drip completion. 1200 - Spoke to Dr. Mcguire who said he would go talk to the patient and family about the discharge. 1551 - Paged Dr. Mcguire to notify him that her magnesium lab levels came back at 2.1. He went to talk to the patient about discharge (her mother was not present). She was agreeable to discharge. 1714 - Gave and discussed with her the discharge paperwork (3 prescriptions, care notes, instructions). Her telemetry and her two IVs were discontinued intact. She said she wanted to stay a bit to eat dinner and then leave after that. Notified her that sometimes the pharmacies close early and she may not be able to get her discharge prescriptions filled until tomorrow. She was fine with this. Care continues.
--- NOTE | 2016-10-04 18:14 | NUR ---
Discharge She was escorted by the HISTORIC PRESERVATIONIST to the lobby at 1810 for discharge. She took all her belongings with her. She thanked staff for their care.
[2016-10-04] MEDS ORDERED: Ketamine 10 mg/mL 20 mL Inj ONE (18:39)
[2016-10-04] MEDS ORDERED: fentaNYL-PF 50 mCg/mL 2 mL Inj ONE (18:39)
[2016-10-04] MEDS ORDERED: Propofol 10,000 mCg/mL 20 mL Inj ONE (18:39)
== END 2016-10-04 18:40 | disposition home or self-care (01) | DRG 378 ==
LOC: SED 01:16 → PCC 03:50 → CCU 04:01 → PCC 05:31
PROVIDERS: ADMIT Hospitalist; ATTEND Hospitalist
PROC: 0DJ08ZZ Inspection of Upper Intestinal Tract, Via Natural or Artificial Opening Endoscopic (ICD-10-PCS; principal; 2016-10-02 12:00)
PROC: 30233N1 Transfusion of Nonautologous Red Blood Cells into Peripheral Vein, Percutaneous Approach (ICD-10-PCS; 2016-10-03)
PROC: 0DJD8ZZ Inspection of Lower Intestinal Tract, Via Natural or Artificial Opening Endoscopic (ICD-10-PCS; 2016-10-04)
DX: K29.01 Acute gastritis with bleeding (principal); G90.511 Complex regional pain syndrome I of right upper limb; N17.9 Acute kidney failure, unspecified; F13.239 Sedative, hypnotic or anxiolytic dependence with withdrawal, unspecified; D62 Acute posthemorrhagic anemia; R00.0 Tachycardia, unspecified; M54.31 Sciatica, right side; F39 Unspecified mood [affective] disorder; F43.10 Post-traumatic stress disorder, unspecified; F19.10 Other psychoactive substance abuse, uncomplicated; E66.9 Obesity, unspecified; Z68.32 Body mass index [BMI] 32.0-32.9, adult; E86.0 Dehydration; D72.829 Elevated white blood cell count, unspecified; J45.909 Unspecified asthma, uncomplicated; K57.91 Diverticulosis of intestine, part unspecified, without perforation or abscess with bleeding; K76.0 Fatty (change of) liver, not elsewhere classified; I10 Essential (primary) hypertension; R73.9 Hyperglycemia, unspecified; E83.42 Hypomagnesemia

== ENCOUNTER 2016-10-11 16:50 | Emergency (ER) | payer MEDICARE ==
[~2016-10-11] VITALS: Ht 177.8 cm; Wt 102.3 kg
[~2016-10-11 16:50] MED LIST changes: +ALBU8.5H2 INH; -CITA20TA PO; -DULO20CA PO; +DULO30CA50 PO; +ONDA4TAB12 PO; +OXYC-465 PO; +PANT20T PO; -PHEN37.53 PO; +PROM12.510 PO; +QUET200T58 PO; -TIZA4TAB4 PO
[2016-10-11 16:55] VITALS: BP 128/79; PULSE 101; RESP 20; O2SAT 100
[2016-10-11 18:13] LABS: BASOPHILS % (AUTO) 0.1 % (0-3); EOSINOPHILS % (AUTO) 2.8 % (0-5); MONOCYTES % (AUTO) 6.1 % (4-12); Mean Corpuscular Hemoglobin 29.5 pg (27.0-35.0); Mean Corpuscular Volume 87.2 fL (81-100); NEUTROPHILS % (AUTO) 71.2 % (40-74); Platelet Count 273 bil/L (150-400)
[2016-10-11 18:33] LABS: Magnesium 1.5 mg/dL (1.6-2.6)
--- NOTE | 2016-10-11 19:23 | ED.REPORT ---
HPI-Abd Pain F 40 and Over Date of Service Oct 11, 2016 ED Provider: Fawad Rudolph MD Pt is a 46 y/o female w/ a hx of anxiety with benzodiazepine dependence, chronic pain with opiate dependence, peptic ulcer disease, presenting to the ED c/o nausea and vomiting onset today. She says she has vomited 15 times today with associated diarrhea, upper abdominal pain. Pt denies hematemesis, bloody stools, fever. She also reports ongoing anxiety. The patient was recently admitted to [facility] from Oct 02- for what was thought to initially be an upper GI bleed. Her final diagnoses at time of discharge were benzodiazepine abuse syndrome, acute GI bleed, and LAMINE. CT abd/ pelvis was negative, upper endoscopy and colonoscopy were normal. She takes Alprazolam 3 mg XR q24h and was being given Ativan q4h during admission. Nursing Notes Stated Complaint: PANIC ATTACK, VOMITING Chief Complaint: Female Abdominal Pain Nursing Notes Reviewed: Yes Allergies: Coded Allergies: codeine (Verified Adverse Reaction, Intermediate, NAUSEA, 10/02/16) Scheduled Alprazolam ER (Xanax XR) 3 Mg Tab.er.24h 3 MG PO DAILY Acyclovir (Acyclovir) 400 Mg Tablet 400 MG PO HS Duloxetine (Duloxetine) 30 Mg Capsule.dr 30 MG PO DAILY Pantoprazole DR (Protonix) 20 Mg Tablet 20 MG PO BID Quetiapine Fumarate (Seroquel) 400 Mg Tablet 400 MG PO HS Quetiapine Fumarate (Quetiapine Fumarate) 200 Mg Tablet 200 MG PO HS Trazodone (Trazodone) 100 Mg Tablet 200 MG PO HS Scheduled PRN Albuterol HFA (Proair HFA) 8.5 Gm Hfa.aer.ad 2 PUFFS INH Q4-6H PRN PRN For Shortness of Breath Ondansetron ODT (Ondansetron ODT) 4 Mg Tab.rapdis 4 MG PO Q8H PRN PRN For Nausea /Vomiting Ondansetron ODT (Zofran ODT) 4 Mg Tablet 4 MG PO Q4H PRN PRN For Nausea Promethazine (Promethazine) 12.5 Mg Tablet 12.5 MG PO Q6H PRN PRN For Anxiety oxyCODONE-Acetaminophen 7.5-325 mg (oxyCODONE-Acetaminophen 7.5-325 mg) 1 Each Tablet 1 TAB PO Q3-4Hrs PRN PRN For Pain General Time Seen by MD: 18:56 Chief Complaint Vomiting moderate Hx Obtained From: Patient Arrived By: Walk-in Sudden in Onset?: No Onset Occurred: 1 week ago Symptom Duration: Since onset Location: : Abdomen upper Quality: Painful Severity: Current: Mild Severity: Maximum: Moderate Recent Healthcare: Recent doctor visit, Recent hospitalization, Recent testing , Previous diagnosis Similar Sx Previous: Yes Past Medical History Past Medical History Notes: SEE BAILEY REPORT!!! Past Medical History Anxiety with benzodiazepine dependence Chronic Back Pain Sciatica Chronic Shoulder pain Hyperlipidemia GERD Depresion h/o RSD upper limb Stomach ulcers at age 11 Chronic benzodiazepine use Chronic opioids Past Surgical History Right rotator cuff surgery x3 Breast augmentation Reports: Appendectomy, Cholecystectomy Reports: Tubal ligation Family History The patients father had coronary artery disease Smoking History Former Smoker Social History Alcohol Use: "Social" Drug Use: Denies drug use Other Social History: Local resident Occupation , Ambulatory Status Independent Review of Systems Constitutional: Denies: Chills, Fever GI: Reports: Abdominal pain, Diarrhea, Nausea, Vomiting, Denies: Bloody/tarry stool, Hematemesis Complete sys rev & neg: except as marked. Psychiatric: Reports: Anxiety Physical Exam Vital Signs Vital Signs (First) Date Time Temp Pulse Resp B/P Pulse Ox O2 Delivery O2 Flow Rate FiO2 10/11/16 16:55 36.1 101 20 128/79 100 Initial VS: Reviewed, Vital signs abnormal Head / Eyes: Atraumatic, Normocephalic ENT: Mucous membranes moist, Conjunctiva normal Neck: Supple, Full range of motion Extremities: Vascular intact, Neuro intact Skin: Warm, Dry, No cyanosis Neurologic: Alert, Oriented, Nonfocal Psychiatric: Mood/affect normal, Behavior normal, Normal thought content General/Constitutional: Awake, Alert, No acute distress, Cooperative, Not toxic appearing Respiratory / Chest: Breath sounds NL, Breath sounds = bilat, No respiratory distress, No rales, No rhonchi, No wheezing Cardiovascular: Heart rate NL, Regular rhythm, Heart sounds NL, No murmurs Abdomen: Atraumatic, Soft, Non-tender, No guarding, No rebound, No distention, No palpable mass Back: Full range of motion, Painless range of motion Rectum / Perineum: Atraumatic, Blood - occult heme -, No gross blood, No fecal impaction, No fissures, No hemorrhoids, No mass Interpretation & Diagnostics Lab Results Interpretation Result Diagram: 10/11/16 1750 10/11/16 1750 Test 10/11/16 17:50 10/11/16 18:59 White Blood Count 7.8th/mm3 (3.8-10.1) Red Blood Count 4.31mil/mm3 (3.90-5.20) Hemoglobin 12.7g/dL (12.0-15.6) Hematocrit 37.6% (35.0-46.0) Mean Corpuscular Volume 87.2fL (81-100) Mean Corpuscular Hemoglobin 29.5pg (27.0-35.0) Mean Corpuscular Hemoglobin Concent 33.8% (32.0-37.0) Red Cell Distribution Width 13.6% (12.3-15.4) Platelet Count 273bil/L (150-400) Neutrophils (%) (Auto) 71.2% (40-74) Lymphocytes (%) (Auto) 19.5% (14-46) Monocytes (%) (Auto) 6.1% (4-12) Eosinophils (%) (Auto) 2.8% (0-5) Basophils (%) (Auto) 0.1% (0-3) Sodium Level 138mEq/L (134-144) Potassium Level 3.9mEq/L (3.5-5.2) Chloride Level 101mEq/L (97-108) Carbon Dioxide Level 24mmol/L (18-29) Blood Urea Nitrogen 7mg/dL (6-24) Creatinine 0.75mg/dL (0.57-1.00) Estimat Glomerular Filtration Rate 119mL/min (>59) Glucose Level 100mg/dL (60-99) Calcium Level 9.5mg/dL (8.5-10.1) Magnesium Level 1.5mg/dL (1.6-2.6) Total Bilirubin 0.4mg/dL (0.0-1.2) Aspartate Amino Transf (AST/SGOT) 16U/L (0-50) Alanine Aminotransferase (ALT/SGPT) 12U/L (0-32) Alkaline Phosphatase 79U/L (25-150) Total Protein 7.4g/dL (6.4-8.4) Albumin 4.5g/dL (3.4-5.0) Lipase 52U/L (13-60) Hold Kat Top Tube Received (Received) Hold Urine Received (Received) Re-Eval/Medical Decision Med Decision/Clinical Course 46-year-old female history of benzodiazepine dependence, chronic pain, recent admission for GI bleed with normal endoscopy and colonoscopy presenting with nausea vomiting diarrhea 1 day. Bowel signs are stable. Patient with minimal tenderness diffuse on exam. No leukocytosis labs are unremarkable. Pain resolved with GI cocktail. Likely gastroenteritis, gastritis. Patient felt much better. Discharged home with Zofran. Return precautions given. Source of Hx: Old records Re-Evaluation/Progress : Time of Eval: 20:56 Re-Evaluation/Progress Note: Pt rechecked. Pain resolved with GI cocktail. Informed pt of plan for discharge. Pt understands and agrees with plan for discharge. F/U instructions and RTER warnings given. All questions addressed. Counseled Regarding: Diagnosis, Lab results, Need for follow-up, When/why to return to ED Discharge & Departure Primary Impression: Gastroenteritis Disposition: Home Discharge Condition All VS Reviewed: Yes Condition: Stable Patient Instructions: Gastroenteritis (ED) Additional Instructions: I suspect you have gastroenteritis, an infection of the bowel which causes vomiting and diarrhea. Labs were reassuring. I recommend a BRAT diet (Bananas, Rice, Applesauce, White Shield) while you are feeling unwell. Return to the emergency department if you experience increased abdominal pain, uncontrolled vomiting or diarrhea, bloody stools or vomit, high fever, severe weakness or lightheadedness, or for other concerning symptoms. Follow-up with your primary care doctor next week for a recheck. Referrals: Da Rojas DO (PCP) Scribe Attestation Portions of this note were transcribed by Juan Callahan. I, Dr. Rudolph personally performed the history, physical exam and medical decision-making; I reviewed and confirmed the accuracy of the information in the transcribed note. copies to: Da Rojas Ben M MD Oct 11, 2016 19:23 JUAN CALLAHAN Oct 11, 2016 19:29
[2016-10-11] MEDS ORDERED: 0.9% Sodium Chloride 1,000 ML IV ONE (19:39)
[2016-10-11] MEDS ORDERED: Ondansetron 2 mg/mL 2 mL Inj IVPUSH PRN (19:40)
[2016-10-11] MEDS ORDERED: LidocaineVisc 2%:Antacid 1:1 10 mL Syringe PO ONE (19:40)
[2016-10-11] MEDS ORDERED: ONDA4TAB9 PO (21:03)
[2016-10-11 21:34] VITALS: BP 131/89; PULSE 86; RESP 18; O2SAT 99
== END 2016-10-11 21:40 | disposition home or self-care (01) ==
LOC: SED 16:50
DX: K52.9 Noninfective gastroenteritis and colitis, unspecified (principal); F41.8 Other specified anxiety disorders; G89.29 Other chronic pain; M54.30 Sciatica, unspecified side; F19.20 Other psychoactive substance dependence, uncomplicated; F11.20 Opioid dependence, uncomplicated; K27.9 Peptic ulcer, site unspecified, unspecified as acute or chronic, without hemorrhage or perforation; M25.519 Pain in unspecified shoulder; E78.5 Hyperlipidemia, unspecified; K21.9 Gastro-esophageal reflux disease without esophagitis
CPT/HCPCS: 36415; 80053; 81025; 83690; 83735; 85025; 96374; 96375; 99284; J1885; J2405; J7030